=== PATIENT | male | born 1955 | race Caucasian/White ===

== ENCOUNTER 2023-10-21 10:28 | Emergency (ER) | payer MEDICARE, SELFPAY ==
--- NOTE | ~2023-10-21 | CT_ITS ---
EXAMINATION: CT ABDOMEN AND PELVIS WITHOUT CONTRAST CLINICAL INFORMATION: Right lower abdominal mass COMPARISON: None available. TECHNIQUE: Multidetector volumetric imaging was performed from the superior aspect of the liver through the pubic symphysis. Sagittal and coronal reformatted images were obtained on the technologist's workstation. This CT examination was performed using dose optimization techniques as appropriate, variously including the following: *Automated exposure control *Adjustment of mA and/or kV according to patient size (this includes techniques or standardized protocols for targeted exams where dose is matched to indication/reason for exam; i.e. extremities or head) *Use of iterative reconstruction technique DLP: 469 mGy-cm FINDINGS: LUNG BASES: The visualized lung bases are unremarkable. LIVER, GALLBLADDER, AND BILIARY TREE: The liver is normal in size, shape, and attenuation. No focal hepatic lesion or biliary ductal dilatation is present. The gallbladder is unremarkable with no evidence of radiopaque gallstones, gallbladder wall thickening, or obvious pericholecystic inflammatory changes. PANCREAS: Unremarkable. SPLEEN: Unremarkable. ADRENAL GLANDS: Unremarkable. KIDNEYS AND URETERS: The right kidney is larger than the left. The right kidney measures 13 and the left 9.3 cm in length. There is mild bilateral hydronephrosis and ureteral dilatation. No stone is seen. There are low attenuation right renal lesions probably representing cysts, largest measuring 3 cm in the upper pole. There is a 1 cm high attenuation round lesion in the upper pole right kidney probably representing a hyperdense cyst. No imaging follow-up recommended. BLADDER: Bladder is well-distended. There may be a TURP defect. GASTROINTESTINAL TRACT: Diverticulosis of the colon. No evidence of diverticulitis. Small and large bowel is otherwise normal. The appendix is not seen. The stomach is normal. ABDOMINAL WALL: No hernia. There is a reservoir seen in the right rectus muscle for penile prosthesis. LYMPH NODES: Normal. VASCULAR: There is severe atherosclerotic disease. There is an aorto bicommon iliac stent graft. There is a stent in the proximal left renal artery. No aneurysm seen. PELVIC VISCERA: Injection for defect. The prostate gland does not appear enlarged. OSSEOUS STRUCTURES: Severe degenerative changes of the spine. Degenerative changes at the hip joints. CT/CT abdomen pelvis wo IV con IMPRESSION: Severe atherosclerotic disease with aortobiiliac and left renal artery stents Right kidney larger than left. Bilateral hydronephrosis and ureteral dilatation. This may be due to distended bladder. Question TURP defect. Diverticulosis. No mass seen. 3 cm reservoir in the right rectus muscle for penile prosthesis. Fleischner guidelines were followed.
[2023-10-21 10:31] VITALS: BP 220/81; PULSE 64; RESP 20; TEMP 36.4; O2SAT 96; BMI 28.5
[2023-10-21 11:21] LABS: MANUAL DIFF FLAG NO
[2023-10-21 11:27] LABS: Basophils Absolute Auto 0.1 X10*3/uL (0.0-0.2); Basophils Percent Auto 0.4 % (0-2); Eosinophils Absolute Auto 0.2 X10*3/uL (0.0-0.4); Eosinophils Percent Auto 0.9 % (0-4); Hematocrit 47.8 % (42.0-52.0); Hemoglobin 15.5 g/dl (14.0-18.0); Imm Gran Abs Auto 0.17 X10*3/uL (0.00-0.03); Imm Gran Pct Auto 0.8 % (0.0-0.4); Lymphocytes Absolute Auto 1.3 X10*3/uL (1.2-4.9); Lymphocytes Percent Auto 6.4 % (20-40); Mean Corpuscular HGB Conc 32.4 g/dl (31.0-36.0); Mean Corpuscular Hemoglobin 29.5 pg (27.0-33.0); Mean Platelet Volume 9.5 fL (9.4-12.4); Monocytes Percent Auto 4.8 % (2-11); Neutrophils Absolute Auto 17.7 x10*3/uL (2.0-8.3); Neutrophils Percent Auto 86.7 % (45-73); Platelet Count 368 X10*3/uL (160-400); Red Blood Count 5.25 X10*6/uL (4.60-5.80); Red Cell Distribution Width 14.6 % (11.0-16.0); White Blood Count 20.4 X10*3/uL (4.8-10.8)
[2023-10-21 11:45] LABS: Alanine Aminotransferase 16 U/L (0-40); Albumin Level 3.9 g/dL (3.5-5.0); Alkaline Phosphatase 97 U/L (39-117); Anion Gap 18 (12-20); Aspartate Amino Transferase 10 U/L (5-37); Bilirubin Direct 0.2 mg/dL (0.0-0.5); Bilirubin Total 0.3 mg/dL (0.0-1.0); Blood Urea Nitrogen 39 mg/dL (9-16); Calcium 10.5 mg/dL (8.4-10.2); Carbon Dioxide 20 mmol/L (22-29); Chloride 108 mmol/L (96-108); Creatinine Clr Calc Pharmacy 29.6; Estimated Glomerular Filt Rate 27; Glucose Random 506 mg/dL (60-115); Lipase 44 U/L (8-78); Potassium 6.1 mmol/L (3.3-5.1); Sodium 140 mmol/L (135-145); Total Protein 7.9 g/dL (6.5-8.0)
--- NOTE | 2023-10-21 11:45 | ECG_ITS ---
Test Reason : HYPERKALEMIA Blood Pressure : / mmHG Vent. Rate : 069 BPM Atrial Rate : 069 BPM P-R Int : 150 ms QRS Dur : 120 ms QT Int : 406 ms P-R-T Axes : 069 -08 -07 degrees QTc Int : 435 ms Normal sinus rhythm Right bundle branch block Possible Lateral infarct , age undetermined Inferior infarct , age undetermined Abnormal ECG No previous ECGs available Referred By: Nikita Garcia Electronically Signed By:Randall Lea
[2023-10-21] MEDS: Insulin Lispro 100 UNIT/ML 3 ML VIAL 10 UNIT SUBCUT (12:21)
--- NOTE | 2023-10-21 12:53 | PC.NURSE ---
pt is a tough stick. 2 nurses have attempted to get a line. MD notified. awaiting us guided line
[2023-10-21] MEDS: 0.9 % Sodium Chloride 1,000 ML 999 ML IVCONT ×2 (13:40→14:09)
[2023-10-21 13:43] VITALS: BP 193/83; PULSE 78; RESP 18; TEMP 36.7; O2SAT 98
--- NOTE | 2023-10-21 13:47 | ED_ITS ---
HPI - General Adult General Chief complaint: General Medical Stated complaint: Referred by PCP Time Seen by Provider: 10/21/23 11:37 Source: patient and family Mode of arrival: ambulatory Limitations: no limitations History of Present Illness HPI narrative: Patient with multiple complaints including ear discharge, urinary incontinence, abdominal pain, rectal pain, weakness Onset (ago): week(s) Related Data Previous Rx's Medication Instructions Recorded clotrimazole 1 % topical cream 1 appl topical BID 4 weeks #90 10/21/23 (Antifungal (clotrimazole)) grams Allergies Allergy/AdvReac Type Severity Reaction Status Date / Time No Known Allergies Allergy Verified 10/21/23 10:36 Review of Systems 2 Review of Systems: Yes all other systems are reviewed and are negative Neurologic: Denies Sensory deficit (Neuro) [facility] Social History Social History Smoked in Last 30 Days: Yes Use of substances other than those prescribed or required for medical reasons: No Advance Directives: No Physical Exam ED Vital Signs: Vital Signs - 24 hr 10/21/23 10:31 10/21/23 13:43 10/21/23 14:03 Temperature 97.5 F 98.1 F 97.6 F Pulse Rate 64 78 71 Respiratory Rate 20 18 12 Blood Pressure 220/81 H 193/83 H 207/90 H Pulse Oximetry 96 98 99 Oxygen Delivery Method Room Air Room Air Room Air 10/21/23 15:49 Temperature 98.6 F Pulse Rate 70 Respiratory Rate 20 Blood Pressure 145/77 H Pulse Oximetry 94 Oxygen Delivery Method Room Air BMI result Body Mass Index 28.5 Const Other: chronically ill appearing Nutritional Appearance: average body habitus Orientation/consciousness: oriented to person and patient oriented x3 Limitations: no limitations HENMT Other: right ear with perforation, no drainage Head: Yes normal to inspection Ears: external ears normal General nose exam: Normal external nose present Mouth: Normal oral and palatal mucosa present and oropharynx normal Throat: Yes posterior oropharynx normal Eyes General: appearance normal, both eyes and all related structures Neck Neck: Yes normal visual inspection Chest Chest palpation & inspection: normal inspection of the chest Resp Auscultation: clear to auscultation bilaterally Cardio Jugular venous distension: no JVD Rate: regular rate Rhythm: regular rhythm Heart sounds: S1 normal heart sound present and S2 normal heart sound present GI Other: mass in right lower abdomen Inspection: Yes normal to inspection Palpation (GI): Soft to palpation, nontender and No hepatosplenomegaly present Auscultation: normal bowel sounds General: Yes no CVA tenderness Back/Spine/Pelvis Back: no CVA tenderness Skin Other: severe tinea cruis Neuro General: oriented to person and patient oriented x3 Cranial nerves: Yes CN's II-XII intact bilaterally Motor exam (neuro): 5/5 motor strength present throughout Sensory Exam: No Sensory deficit (Neuro) Extrem General: Yes normal to inspection Psych Appearance: grossly normal Course Reevaluation(s) Reevaluation #1: Patient with severe dehydration, abnormal glucose and potassium, CT is normal, mass in right abdomen is resovier for his penile prosthesis will rehydrate and get sugar down and dc home Time: 16:10 Medications Administered Discontinued Medications Generic Name Dose Route Start Last Admin Trade Name Freq PRN Reason Stop Dose Admin Clonidine HCl 0.3 mg 10/21/23 13:49 10/21/23 14:06 Clonidine Hcl 0.1 Mg Tablet PO 10/21/23 13:50 0.3 mg ONCE ONE Administration Protocol Sodium Chloride 1,000 mls @ 999 mls/hr 10/21/23 12:00 10/21/23 15:30 Ns IVCONT 10/21/23 14:00 Infused .Q1H1M HOWARD Infusion Insulin Human Lispro 10 unit 10/21/23 11:55 10/21/23 12:21 Insulin Lispro 100 Unit/Ml 3 Ml Vial SUBCUT 10/21/23 11:56 10 unit ONCE ONE Administration Insulin Human Lispro 5 unit 10/21/23 15:30 10/21/23 15:53 Insulin Lispro 100 Unit/Ml 3 Ml Vial SUBCUT 10/21/23 15:31 5 unit ONCE ONE Administration Morphine Sulfate 4 mg 10/21/23 13:46 10/21/23 14:06 Morphine Sulfate 4 Mg/Ml Cartridge IVPUSH 10/21/23 13:47 4 mg ONCE ONE Administration Protocol Medical Decision Making Differential Diagnosis Differential Diagnoses: The differential diagnosis associated with the presentation includes (abdominal mass, dehydration, hyperglycemia, hyperkalemia were all considered) Admission/Observation Consideration of admission/observation: Escalation of care including admission/observation considered (upon arrival patient was considered for admission) Lab Data MDM Lab Attestation statement: I reviewed the patient's lab results. 10/21/23 11:16 10/21/23 15:50 Labs: Lab Results 10/21/23 10/21/23 10/21/23 Range/Units 11:16 13:33 13:58 WBC 20.4 H (4.8-10.8) X10*3/uL RBC 5.25 (4.60-5.80) X10*6/uL Hgb 15.5 (14.0-18.0) g/dl Hct 47.8 (42.0-52.0) % MCV 91.0 (80.0-98.0) fL MCH 29.5 (27.0-33.0) pg MCHC 32.4 (31.0-36.0) g/dl RDW 14.6 (11.0-16.0) % Plt Count 368 (160-400) X10*3/uL MPV 9.5 (9.4-12.4) fL Immature Gran % (Auto) 0.8 H (0.0-0.4) % Neut % (Auto) 86.7 H (45-73) % Lymph % (Auto) 6.4 L (20-40) % [place] % (Auto) 4.8 (2-11) % Eos % (Auto) 0.9 (0-4) % Baso % (Auto) 0.4 (0-2) % Lymph # (Auto) 1.3 (1.2-4.9) X10*3/uL [place] # (Auto) 1.0 (0.1-1.2) X10*3/uL Eos # (Auto) 0.2 (0.0-0.4) X10*3/uL Baso # (Auto) 0.1 (0.0-0.2) X10*3/uL Abs Immat Gran (auto) 0.17 H (0.00-0.03) X10*3/uL Absolute Neuts (auto) 17.7 H (2.0-8.3) x10*3/uL Absolute Nucleated RBC 0.000 (0.0-0.012) X10*3/uL Nucleated RBC % (auto) 0.0 (0.0-0.2) /100WBC Sodium 140 (135-145) mmol/L Potassium 6.1 H* (3.3-5.1) mmol/L Chloride 108 (96-108) mmol/L Carbon Dioxide 20 L (22-29) mmol/L Anion Gap 18 (12-20) BUN 39 H (9-16) mg/dL Creatinine 2.44 H (0.5-1.4) mg/dL Estim Creat Clear Calc 29.6 Estimated GFR 27 POC Glucose 340 H (60-115) mg/dL Random Glucose 506 H* (60-115) mg/dL Lactic Acid 1.3 (0.5-2.0) mmol/L Calcium 10.5 H (8.4-10.2) mg/dL Total Bilirubin 0.3 (0.0-1.0) mg/dL Direct Bilirubin 0.2 (0.0-0.5) mg/dL AST 10 (5-37) U/L ALT 16 (0-40) U/L Alkaline Phosphatase 97 (39-117) U/L Total Protein 7.9 (6.5-8.0) g/dL Albumin 3.9 (3.5-5.0) g/dL Lipase 44 (8-78) U/L 10/21/23 10/21/23 Range/Units 14:56 15:50 WBC (4.8-10.8) X10*3/uL RBC (4.60-5.80) X10*6/uL Hgb (14.0-18.0) g/dl Hct (42.0-52.0) % MCV (80.0-98.0) fL MCH (27.0-33.0) pg MCHC (31.0-36.0) g/dl RDW (11.0-16.0) % Plt Count (160-400) X10*3/uL MPV (9.4-12.4) fL Immature Gran % (Auto) (0.0-0.4) % Neut % (Auto) (45-73) % Lymph % (Auto) (20-40) % [place] % (Auto) (2-11) % Eos % (Auto) (0-4) % Baso % (Auto) (0-2) % Lymph # (Auto) (1.2-4.9) X10*3/uL [place] # (Auto) (0.1-1.2) X10*3/uL Eos # (Auto) (0.0-0.4) X10*3/uL Baso # (Auto) (0.0-0.2) X10*3/uL Abs Immat Gran (auto) (0.00-0.03) X10*3/uL Absolute Neuts (auto) (2.0-8.3) x10*3/uL Absolute Nucleated RBC (0.0-0.012) X10*3/uL Nucleated RBC % (auto) (0.0-0.2) /100WBC Sodium 143 (135-145) mmol/L Potassium 5.5 H (3.3-5.1) mmol/L Chloride 112 H (96-108) mmol/L Carbon Dioxide 23 (22-29) mmol/L Anion Gap 14 (12-20) BUN 37 H (9-16) mg/dL Creatinine 2.44 H (0.5-1.4) mg/dL Estim Creat Clear Calc 29.6 Estimated GFR 27 POC Glucose 332 H (60-115) mg/dL Random Glucose 315 H (60-115) mg/dL Lactic Acid (0.5-2.0) mmol/L Calcium 9.6 D (8.4-10.2) mg/dL Total Bilirubin (0.0-1.0) mg/dL Direct Bilirubin (0.0-0.5) mg/dL AST (5-37) U/L ALT (0-40) U/L Alkaline Phosphatase (39-117) U/L Total Protein (6.5-8.0) g/dL Albumin (3.5-5.0) g/dL Lipase (8-78) U/L Independent Interpretation I performed an independent interpretation of an: EKG (sinus 70, RBBB, no st or twave changes) Radiology Impression Discussion of test interpretation with radiology: I have reviewed the radiologist's reading. (CT abdomen reading and I agree) Independent Historian Clinical information obtained from an independent historian. History obtained from or confirmed by: [facility] Chronic Conditions Patient?s care impacted by: Diabetes and Hypertension Discharge Plan Discharge Clinical Impression: Acute dehydration, Acute hyperglycemia, Tinea cruris Instructions: Dehydration (ED), Jock Itch (ED), Diabetic Hyperglycemia (ED) Prescriptions: New clotrimazole [Antifungal (clotrimazole)] 1 % cream 1 appl topical BID 28 Days Qty: 90 0RF Referrals: Jennifer Roberto DNP [Primary Care Provider] - 5 days
[2023-10-21 13:48] LABS: Lactic Acid 1.3 mmol/L (0.5-2.0)
[2023-10-21 14:02] LABS: Glucose, Whole Blood 340 mg/dL (60-115)
[2023-10-21 14:03] VITALS: BP 207/90; PULSE 71; RESP 12; TEMP 36.4; O2SAT 99
[2023-10-21] MEDS: cloNIDine HCL 0.1 MG TABLET 0.3 MG PO (14:06)
[2023-10-21] MEDS: Morphine Sulfate 4 MG/ML CARTRIDGE IVPUSH (14:06)
[2023-10-21 14:59] LABS: Glucose, Whole Blood 332 mg/dL (60-115)
[2023-10-21 15:49] VITALS: BP 145/77; PULSE 70; RESP 20; TEMP 37; O2SAT 94
[2023-10-21] MEDS: Insulin Lispro 100 UNIT/ML 3 ML VIAL SUBCUT (15:53)
--- NOTE | 2023-10-21 16:11 | PC.NURSE ---
fluids complete, repeat chem panel sent to lab after fluid completion. plan of care ongoing
[2023-10-21 16:17] LABS: Anion Gap 14 (12-20); Blood Urea Nitrogen 37 mg/dL (9-16); Calcium 9.6 mg/dL (8.4-10.2); Carbon Dioxide 23 mmol/L (22-29); Chloride 112 mmol/L (96-108); Creatinine Clr Calc Pharmacy 29.6; Estimated Glomerular Filt Rate 27; Glucose Random 315 mg/dL (60-115); Potassium 5.5 mmol/L (3.3-5.1); Sodium 143 mmol/L (135-145)
== END 2023-10-21 17:23 | disposition home or self-care (01) ==
PROVIDERS: Emergency Provider Emergency Medicine; PCP Registered Nurse
DX: E86.0 Dehydration (principal); B35.6 Tinea cruris; R73.9 Hyperglycemia, unspecified; R32 Unspecified urinary incontinence; I45.10 Unspecified right bundle-branch block; K62.89 Other specified diseases of anus and rectum; R10.9 Unspecified abdominal pain; Z79.899 Other long term (current) drug therapy
CPT/HCPCS: 36415; 74176; 80048; 80076; 82947; 83605; 83690; 85025; 87040; 93005; 96361; 96374; 99284; 99285; J2270

== ENCOUNTER → 2023-10-21 11:45 | Outpatient (BNV) | payer MEDICARE, SELFPAY | PROVIDERS: Emergency Provider Emergency Medicine; PCP Registered Nurse; Visit Provider Internal Medicine Cardiovascular Disease | DX: E87.5 Hyperkalemia (principal) | CPT/HCPCS: 93010 ==

== ENCOUNTER 2024-05-12 11:47 | Emergency (ER) | payer MEDICARE, SELFPAY ==
--- NOTE | ~2024-05-12 | XR_ITS ---
EXAMINATION: XR SHOULDER, RIGHT CLINICAL INFORMATION: Pain following a fall. COMPARISON: None available. TECHNIQUE: AP external rotation, Grashey, scapular Y, and axillary views of the right shoulder. FINDINGS: No displaced fracture. No dislocation. Moderate acromioclavicular and glenohumeral joint space narrowing with marginal osteophytes. Diffuse glenohumeral chondrocalcinosis. Multiple ossified loose bodies throughout the joint space including within the proximal long head biceps tendon sheath. No concerning lytic or blastic osseous lesion. XR/XR shoulder RT min 2V IMPRESSION: 1. No acute fracture or dislocation. 2. Moderate acromioclavicular and glenohumeral osteoarthritis. Diffuse chondrocalcinosis. Multiple calcified loose bodies throughout the joint space including within the proximal long head biceps tendon sheath.
--- NOTE | ~2024-05-12 | CT_ITS ---
EXAMINATION: CT CERVICAL SPINE WITHOUT CONTRAST CLINICAL INFORMATION: Fall. COMPARISON: None available. TECHNIQUE: Noncontrast CT of the cervical spine was performed. This CT examination was performed using dose optimization techniques as appropriate, variously including the following: *Automated exposure control *Adjustment of mA and/or kV according to patient size (this includes techniques or standardized protocols for targeted exams where dose is matched to indication/reason for exam; i.e. extremities or head) *Use of iterative reconstruction technique DLP: 412 mGy-cm FINDINGS: There is normal anatomic alignment of the vertebral bodies and facet joints. The vertebral bodies demonstrate preserved stature. There is intervertebral disc space narrowing at C5-C6 and C6-C7 with associated endplate sclerosis and marginal osteophytosis. There are disc osteophyte complexes at multiple levels including C3-C4, C4-C5, C5-C6. There is at least moderate spinal canal stenosis at C4-C5. The prevertebral soft tissues are normal in appearance. There is no acute cervical spine fracture. The lung apices are clear. CT/CT cervical spine wo IV con IMPRESSION: No acute osseous cervical spine abnormality. Degenerative disc disease and multilevel disc osteophyte complexes are noted. There is at least moderate spinal canal stenosis at C4-C5. Fleischner guidelines were followed.
--- NOTE | ~2024-05-12 | CT_ITS ---
EXAMINATION: CT HEAD WITHOUT CONTRAST CLINICAL INFORMATION: Fall. COMPARISON: None available. TECHNIQUE: Contiguous axial imaging was performed from the skull base to vertex without intravenous administration of contrast. This CT examination was performed using dose optimization techniques as appropriate, variously including the following: *Automated exposure control *Adjustment of mA and/or kV according to patient size (this includes techniques or standardized protocols for targeted exams where dose is matched to indication/reason for exam; i.e. extremities or head) *Use of iterative reconstruction technique DLP: 718 mGy-cm FINDINGS: There is no acute intracranial hemorrhage. There is no evidence of acute/subacute cerebral or cerebellar infarction. There is no midline shift or mass effect. No extra-axial fluid collection. The ventricles are normal in size. The visualized orbits are normal in appearance. There are in numerable calcifications scattered throughout the scalp. The calvarium is intact. The visualized paranasal sinuses are clear. The mastoid air cells are sclerotic bilaterally. CT/CT head/brain wo IV con IMPRESSION: No acute intracranial abnormality. There are innumerable calcifications scattered throughout the scalp.
[2024-05-12 11:53] VITALS: BP 188/90; PULSE 84; RESP 16; TEMP 36.1; O2SAT 96; BMI 27.9
--- NOTE | 2024-05-12 11:53 | ED.UPPEXIN ---
HPI - Extremity Injury (Upper) General Chief Complaint: Extremity Injury, Upper Stated Complaint: Shoulder inj Time Seen by Provider: 05/12/24 13:19 Source: patient and family Mode of arrival: ambulatory Limitations: no limitations History of Present Illness HPI narrative: 69-year-old male with a past medical history of chronic kidney disease and coma presents emergency department, with his partner, for evaluation of white/green discharge from bilateral ears as well as right shoulder pain after fall. He reports he slipped in the tub last week causing pain to the lateral shoulder radiating into the neck and down the arm into the hand. He reports he has been taking Tylenol with minimal improvement. Regarding his discharge from the ears he states the discharge has been happening for ?a long time? and that at times he can feel the drainage coming out of the ears. He states he was started on a topical antifungal as well as antibiotics with no improvement. He denies any hearing changes, headache, masses tenderness, fever, or chills. He also received once he concern he constantly smells urine. 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 Dupont Pertinent positives and negatives discussed in HPI Related Data Previous Rx's ?Medication ?Instructions ?Recorded clotrimazole 1 % topical cream 1 appl topical BID 4 weeks #90 10/21/23 (Antifungal (clotrimazole)) grams amoxicillin 875 mg-potassium 1 tab PO BID #7 tabs 05/12/24 clavulanate 125 mg tablet Allergies Allergy/AdvReac Type Severity Reaction Status Date / Time No Known Allergies Allergy Verified 05/12/24 11:55 Review of Systems Review of Systems: Yes all other systems are reviewed and are negative PMFSH Social History Social History Advance Directives: Yes Advance Directives on File: Yes Advance Directives Date on File: 05/12/24 Physical Exam Vital Signs: Vital Signs: Last Vital Signs Temp 98.9 F 05/12/24 17:05 Pulse 82 05/12/24 17:05 Resp 18 05/12/24 17:05 BP 183/79 H 05/12/24 17:05 Pulse Ox 96 05/12/24 17:05 O2 Del Method Room Air 05/12/24 17:05 BMI result Body Mass Index 27.9 Nursing notes and vital signs reviewed. GENERAL APPEARANCE: A&0 x 4, generally well appearing, no acute distress HENMT: Normal to inspection, atraumatic, face symmetrical. Normal external ears, nose, and oropharynx clear. EYE: PERRLA, EOM intact, structures appear normal NECK: Supple without lymphadenopathy. No stiffness or restricted ROM. CHEST: Normal to inspection HEART: Normal rate and regular rhythm, normal S1/S2, no M/R/G LUNGS: LS CTA, moving air well. Able to speak in complete sentences. No crackles, wheezes, or rhonchi auscultated ABDOMEN: Soft, nontender, nondistended. Normal bowel sounds noted BACK: No CVAT, no obvious deformity EXTREMITIES: Moving all extremities without difficulty. No cyanosis, clubbing, or edema. Normal capillary refill. NEUROLOGICAL: Alert and oriented, moving all 4 extremities with equal strength. CN not formally tested but appearing grossly intact. Observed to ambulate with normal gait. Cognition normal SKIN: Warm and dry without any lesions, rash, or visible sores PSYCH: Cooperative, normal affect, normal thought process Extrem: Shoulder/upper arm images: 1. Tenderness to palp Course Course Course Narrative: This is a Rapid Medical Examination (RME) performed by Renuka Mustafa PA-C in triage. Full HPI, ROS, assessment and treatment plan per primary provider in the Main ED. 69 yo right hand dominant male presents to the ER for evaluation of right shoulder pain after he fell in the bathtub last week. Pain is worse with movement and radiated down to the fingers and into the neck. He also reports a rash on his hands he wants evaluated. Also requesting lab work for his CKD. Plan: XR right shoulder Medications Administered Discontinued Medications Generic Name Dose Route Start Last Admin Trade Name Freq PRN Reason Stop Dose Admin Acetaminophen 975 mg 05/12/24 16:27 05/12/24 16:33 Acetaminophen 325 Mg Tablet PO 05/12/24 16:28 975 mg ONCE ONE Administration Clonidine HCl 0.2 mg 05/12/24 16:33 05/12/24 16:37 Clonidine Hcl 0.2 Mg Tablet PO 05/12/24 16:34 0.2 mg ONCE ONE Administration Protocol Lisinopril 20 mg 05/12/24 16:33 05/12/24 16:37 Lisinopril 20 Mg Tablet PO 05/12/24 16:34 20 mg ONCE ONE Administration Protocol Medical Decision Making Medical Decision Making MDM Narrative: Old records reviewed for previous imaging, lab studies, ECGs, and notes. Additional HPI obtained from patient's partner. Patient was assessed the emergency department with no acute distress or toxicity noted. Plan for CT head and C-spine to assess for acute injuries after fall as well as evaluate for possible cause of bilateral ear discharge. CT scan with contrast was considered, however; patient has chronic kidney disease with a creatinine of 1.58 in contrast was contraindicated due to his kidney function as well as history of diabetes. Patient reports red/purple rash on bilateral arms and hands and plan for blood work and HIV screening to further assess. CT head and C-spine showing no acute abnormalities, per my interpretation. Radiologist remarks on innumerable calcifications scattered throughout the scalp as well as mastoid air cells sclerotic bilaterally. Patient has no evidence of posterior ear tenderness, erythema, or swelling consistent with mastoiditis. Augmentin prescribed the patient's preferred pharmacy for management of otitis media which would be consistent with patient's bilateral ear discharge. Patient educated to follow-up with ENT with contact information provided. X-ray right shoulder showing no evidence of acute fracture dislocation, also per my interpretation. Patient educated to follow-up with Orthopedics as he may require an MRI for further evaluation of injury. HIV studies pending and patient educated that we will contact him with results. Patient is safe for discharge at this time with plan for [id number] Tylenol and/or NSAID such as ibuprofen or naproxen for fever/discomfort with dosing as per packaging. HPI, PE, diagnostics, and plan discussed with patient and family with no unanswered questions at this time. Strict return precautions given to return to the emergency department with new, worsening, or concerning emergent symptoms. Recommended to follow-up with there primary care provider in 24-48 hours for further treatment and management. Differential Diagnosis Differential Diagnoses: The differential diagnosis associated with the presentation includes But not limited to fracture, dislocation, strain, sprain, contusion, tendon or ligament tear, otitis media, otitis externa, mastoiditis, cholesteatoma, sinusitis, sepsis, malignancy Admission/Observation Consideration of admission/observation: Escalation of care including admission/observation considered Lab Data [facility] Lab Attestation statement: I reviewed the patient's lab results. 05/12/24 12:05 05/12/24 12:05 Labs: Lab Results 05/12/24 Range/Units 12:05 WBC 11.0 H (4.8-10.8) X10*3/uL RBC 5.22 (4.60-5.80) X10*6/uL Hgb 15.5 (14.0-18.0) g/dl Hct 46.2 (42.0-52.0) % MCV 88.5 (80.0-98.0) fL MCH 29.7 (27.0-33.0) pg MCHC 33.5 (31.0-36.0) g/dl RDW 14.2 (11.0-16.0) % Plt Count 236 D (160-400) X10*3/uL MPV 10.3 (9.4-12.4) fL Immature Gran % (Auto) 0.3 (0.0-0.4) % Neut % (Auto) 64.5 (45-73) % Lymph % (Auto) 24.7 (20-40) % [place] % (Auto) 8.4 (2-11) % Eos % (Auto) 1.6 (0-4) % Baso % (Auto) 0.5 (0-2) % Lymph # (Auto) 2.7 (1.2-4.9) X10*3/uL [place] # (Auto) 0.9 (0.1-1.2) X10*3/uL Eos # (Auto) 0.2 (0.0-0.4) X10*3/uL Baso # (Auto) 0.1 (0.0-0.2) X10*3/uL Abs Immat Gran (auto) 0.03 (0.00-0.03) X10*3/uL Absolute Neuts (auto) 7.1 (2.0-8.3) x10*3/uL Absolute Nucleated RBC 0.000 (0.0-0.012) X10*3/uL Nucleated RBC % (auto) 0.0 (0.0-0.2) /100WBC Sodium 145 (135-145) mmol/L Potassium 4.8 (3.3-5.1) mmol/L Chloride 109 H (96-108) mmol/L Carbon Dioxide 27 (22-29) mmol/L Anion Gap 14 (12-20) BUN 27 H (9-16) mg/dL Creatinine 1.58 H (0.5-1.4) mg/dL Estim Creat Clear Calc 44.7 Estimated GFR 44 Random Glucose 111 (60-115) mg/dL Calcium 10.3 H D (8.4-10.2) mg/dL Independent Interpretation I performed an independent interpretation of an: Plain X-Ray and CT Scan Interpretation: As negative for acute findings Independent Historian Clinical information obtained from an independent historian. History obtained from or confirmed by: Spouse External Record Review External record reviewed: Prior outpatient labs Prescription Management Narcotic pain medication was considered, however; based on exam, side effects, and high-risk of addiction was deemed necessary at this time. Discharge Plan Discharge Clinical Impression: Right shoulder strain, Fall, Otitis media Patient Disposition: Home, Self-Care Instructions: Muscle Strain (ED), Ear Infection (ED), Fall Prevention (ED) Prescriptions: New amoxicillin-pot clavulanate 875-125 mg tablet 1 tab PO BID Qty: 7 0RF No Action clotrimazole [Antifungal (clotrimazole)] 1 % cream 1 appl topical BID 28 Days Qty: 90 0RF Referrals: [facility] [place] [facility] [Provider Group] (For follow up shoulder pain) Arcadio Jorgensen MD [Primary Care Provider] - Dariel Yeung [Physician] - () Interventions: ED Discharge Assessment Last Done: 05/12/24 17:05 Discharge Date/Time: 05/12/24 17:06 Print Language: Sudanese
[2024-05-12 12:00] VITALS: BP 161/76; PULSE 76; RESP 18; TEMP 37.1; O2SAT 98
[2024-05-12 12:10] LABS: MANUAL DIFF FLAG NO
[2024-05-12 12:14] LABS: Basophils Absolute Auto 0.1 X10*3/uL (0.0-0.2); Basophils Percent Auto 0.5 % (0-2); Eosinophils Absolute Auto 0.2 X10*3/uL (0.0-0.4); Eosinophils Percent Auto 1.6 % (0-4); Hematocrit 46.2 % (42.0-52.0); Hemoglobin 15.5 g/dl (14.0-18.0); Imm Gran Abs Auto 0.03 X10*3/uL (0.00-0.03); Imm Gran Pct Auto 0.3 % (0.0-0.4); Lymphocytes Absolute Auto 2.7 X10*3/uL (1.2-4.9); Lymphocytes Percent Auto 24.7 % (20-40); Mean Corpuscular HGB Conc 33.5 g/dl (31.0-36.0); Mean Corpuscular Hemoglobin 29.7 pg (27.0-33.0); Mean Corpuscular Volume 88.5 fL (80.0-98.0); Mean Platelet Volume 10.3 fL (9.4-12.4); Monocytes Absolute Auto 0.9 X10*3/uL (0.1-1.2); Monocytes Percent Auto 8.4 % (2-11); Neutrophils Absolute Auto 7.1 x10*3/uL (2.0-8.3); Neutrophils Percent Auto 64.5 % (45-73); Platelet Count 236 X10*3/uL (160-400); Red Blood Count 5.22 X10*6/uL (4.60-5.80); Red Cell Distribution Width 14.2 % (11.0-16.0)
[2024-05-12 12:25] LABS: Anion Gap 14 (12-20); Blood Urea Nitrogen 27 mg/dL (9-16); Calcium 10.3 mg/dL (8.4-10.2); Carbon Dioxide 27 mmol/L (22-29); Chloride 109 mmol/L (96-108); Creatinine Clr Calc Pharmacy 44.7; Estimated Glomerular Filt Rate 44; Glucose Random 111 mg/dL (60-115); Potassium 4.8 mmol/L (3.3-5.1); Sodium 145 mmol/L (135-145)
[2024-05-12 14:00] VITALS: BP 189/95; PULSE 88; RESP 14; TEMP 37; O2SAT 96
[2024-05-12] MEDS: Acetaminophen 325 MG TABLET 975 MG PO (16:33)
[2024-05-12] MEDS: lisinopriL 20 MG TABLET PO (16:37)
[2024-05-12] MEDS: cloNIDine HCL 0.2 MG TABLET PO (16:37)
[2024-05-12 17:05] VITALS: BP 183/79; PULSE 82; RESP 18; TEMP 37.2; O2SAT 96
[2024-05-13 05:13] LABS: HIV AB/AG Nonreactive (Nonreactive); HIV Num 2 0.41 S/CO; HIV Num 3 0.37 S/CO
--- OUTSIDE RECORDS SUMMARY | 2024-05-18 06:17 | XMS_ITS | Continuity of Care Document ---
Author Organization [facility] ter Address [address] [place] [id number]- Care Team Providers Care Customer Account Manager Name Role Phone Pardeep GUZMAN, Jennifer Lopez Primary Care Physician [place] [facility] [place] 10/29/23 - 10/29/[address] [id number] Attending Physician: Jose Ramon Dupont MD Allergies, Adverse Reactions, Alerts No Known Allergies Medications Acetaminophen = 650 mg, By Mouth, 2 times a day, PRN Other, 0 Refills, Maintenance, 07/15/22 19:21:00 EDT, Partial fill upon patient request if the prescription is for a schedule II opioid drug. Start Date: 07/15/22 Status: Ordered Albuterol (Eqv-ProAir HFA) 90 mcg/inh inhalation aerosol 2 puffs, Inhalation, Every 6 hours, PRN Wheezing/Shortness of Breath, 0 Refills, Maintenance, 06/24/23 8:52:00 EDT, Partial fill upon patient request if the prescription is for a schedule II opioid drug. Start Date: 06/24/23 Status: Ordered aspirin (OP) = 81 mg, By Mouth, Daily, 0 Refills, Maintenance, 2 Start Date: 07/15/22 Status: Ordered Breo Ellipta 200 mcg-25 mcg/inh inhalation powder 1 puffs, INHALE 1 PUFF BY MOUTH EVERY DAY Start Date: 06/24/23 Status: Ordered Clonazepam = 1 mg, By Mouth, 2 times a day, 0 Refills, Maintenance, 07/15/22 19:21:00 EDT, Partial fill upon patient request if the prescription is for a schedule II opioid drug. Start Date: 07/15/22 Status: Ordered Clonidine = 0.2 mg, By Mouth, 2 times a day, 0 Refills, Maintenance, 07/15/22 19:21:00 EDT, Partial fill uponpatient request if the prescription is for a schedule II opioid drug. Start Date: 07/15/22 Status: Ordered Clopidogrel = 75 mg, By Mouth, Daily, 0 Refills, Maintenance, 07/15/22 19:20:00 EDT, Partial fill upon patient request if the prescription is for a schedule II opioid drug. Start Date: 07/15/22 Status: Ordered Dulcolax 5 mg oral enteric coated tablet 1 tablet = 5 mg, By Mouth, Daily, 0 Refills, Maintenance, 07/15/22 19:21:00 EDT, Partial fill upon patient request if the prescription is for a schedule II opioid drug. Start Date: 07/15/22 Status: Ordered Flonase Allergy Relief 50 mcg/inh nasal spray Daily, PRN Other, 0 Refills, Maintenance, 07/23/23 9:01:00 EDT, Partial fill upon patient request if the prescription is for a schedule II opioid drug. Start Date: 07/23/23 Status: Ordered Kalexate oral and rectal powder DISSOLVE 30 GRAMS AND TAKE BY MOUTH ONCE A month Start Date: 06/24/23 Status: Ordered Lisinopril = 20 mg, By Mouth, Daily, 0 Refills, Maintenance, 07/15/22 19:20:00 EDT, Partial fill upon patient request if the prescription is for a schedule II opioid drug. Start Date: 07/15/22 Status: Ordered Novolin 70/30 human recombinant subcutaneous injection 40 units, Subcutaneous Injection, 2 times a day, # 10 mL, 0 Refills, Maintenance, 07/23/23 9:06:00 EDT, Suspension, Partial fill upon patient request if the prescription is for a schedule II opioid drug. Start Date: 07/23/23 Status: Ordered Pantoprazole = 40 mg, By Mouth, 2 times a day, 0 Refills, Maintenance, 07/15/22 19:20:00 EDT Start Date: 07/15/22 Status: Ordered Rosuvastatin = 40 mg, By Mouth, Daily at bedtime, 0 Refills, Maintenance, 07/15/22 19:20:00 EDT, Partial fill upon patient request if the prescription is for a schedule II opioid drug. Start Date: 07/15/22 Status: Ordered Problem List Condition Confirmation Course Effective Dates Status Health St atus Informant CKD (chronic kidney disease) stage 3, GFR 30-59 ml/min Confirmed Active COPD (chronic obstructive pulmonary disease) Confirmed Active CAD (coronary artery disease) Confirmed Active Diabetes Confirmed Active History of Prostate cancer Confirmed Active History of Myocardial infarction x5 Confirmed Active TOMÁS (obstructive sleep apnea) Confirmed Active Social History Social History Type Response Tobacco Other: Patient shahida santana reports smoking 1-1/2 pack/day and currently working on behavior modification to cut down and eventually quit smoking.. Sex Patient Care team information Care Team Personnel Name: Pardeep GUZMAN, Jennifer Lopez Position[facility] Outreach Member Role: PCP Address: Address: [address] [place] [address]- Care Team Related Persons Name: BIENVENIDO IVORY Address: home [address] [place] [id number]
--- OUTSIDE RECORDS SUMMARY | 2024-05-18 06:17 | XMS_ITS | Continuity of Care Document ---
Author Organization [facility] ter Address [address] [place] [address]- Care Team Providers Care Accordion Maker Name Role Phone Pardeep GUZMAN, Jennifer Lopez Primary Care Physician Encounter [facility] [place] Date(s): 02/06/23 - 02/06/[address] [address]- Discharge Disposition: A-D/C Home Attending Physician: Jose Ramon Dupont MD Admitting Physician: Jose Ramon Dupont MD Referring Physician: Jose Ramon Dupont MD Allergies, Adverse Reactions, Alerts No Known Allergies Medications Acetaminophen 0 Refills, Maintenance, 07/15/22 19:21:00 EDT, Partial fill upon patient request if the prescription is for a schedule II opioid drug. Start Date: 07/15/22 Status: Ordered albuterol 90 mcg/inh inhalation powder 2 puffs, Inhalation, Every 4 hours, PRN as needed, # 1 each, 0 Refills, Maintenance, 02/04/23 12:33:00 EDT, Powder, Partial fill upon patient request if the prescription is for a schedule II opioid drug. Start Date: 02/04/23 Status: Ordered aspirin (OP) = 81 mg, By Mouth, Daily, 0 Refills, Maintenance, 2 Start Date: 07/15/22 Status: Ordered Clonazepam = 1 mg, By Mouth, 2 times a day, 0 Refills, Maintenance, 07/15/22 19:21:00 EDT, Partial fill upon patient request if the prescription is for a schedule II opioid drug. Start Date: 07/15/22 Status: Ordered Clonidine = 0.2 mg, By Mouth, 3 times a day, 0 Refills, Maintenance, 07/15/22 [...] opioid drug. Start Date: 07/15/22 Status: Ordered Lisinopril = 20 mg, By Mouth, Daily, 0 Refills, Maintenance, 07/15/22 19:20:00 EDT, Partial fill upon patient request if the prescription is for a schedule II opioid drug. Start Date: 07/15/22 Status: Ordered NovoLIN 70/30 FlexPen Subcutaneous Infusion, 0 Refills, Maintenance, 07/15/22 19:19:00 EDT, Partial fill upon patient request if the prescription is for a schedule II opioid drug. Start Date: 07/15/22 Status: Ordered Pantoprazole = 40 mg, By Mouth, 2 times a day, 0 Refills, Maintenance, 07/15/22 19:20:00 EDT Start Date: 07/15/22 Status: Ordered Rosuvastatin = 40 mg, By Mouth, Daily at bedtime, 0 Refills, Maintenance, 07/15/22 19:20:00 EDT, Partial fill upon patient request if the prescription is for a schedule II opioid drug. Start Date: 07/15/22 Status: Ordered Vital Signs Most recent to oldest [Reference Range]: 1 2 3 Height 168 cm (02/06/23 9:33 AM) 168 cm (02/04/23 1:50 PM) Weight 84.2 kg (02/06/23 9:33 AM) 85 kg (02/04/23 1:50 PM) Oxygen Saturation [94-100 %] 95 % (02/06/23 11:30 AM) 100 % (02/06/23 11:15 AM) 100 % (02/06/23 11:00 AM) Pulse Rate [55-90 bpm] 65 bpm (02/06/23 9:33 AM) Body Mass Index [18.5-24.99 kg/m2] 29.83 kg/m2 *H* (02/06/23 9:33 AM) 30.12 kg/m2 *>HHI* (02/04/23 1:50 PM) Blood Pressure [90-138/55-84 mm Hg] 163/65mm Hg *H* (02/06/23 11:30 AM) 139/62mm Hg *H* (02/06/23 11:15 AM) 162/53mm Hg *H* (02/06/23 11:00 AM) Respiratory Rate [16-30 br/min] 18 br/min (02/06/23 11:30 AM) 23 br/min (02/06/23 11:15 AM) 19 br/min (02/06/23 11:00 AM) Temperature [96.8-100.4 DegF] 97.6 DegF (02/06/23 11:00 AM) 97.5 DegF (02/06/23 9:33 AM) Liters per Minute 8 L/min (02/06/23 11:00 AM) Mode of Delivery (Oxygen) Room air (02/06/23 12:15 PM) Room air (02/06/23 11:30 AM) Room air (02/06/23 11:15 AM) Blood pressure sites Arm, right (02/06/23 9:33 AM) Temperature Route Temporal (02/06/23 11:00 AM) Temporal (02/06/23 9:33 AM) Dry Weight 84.2 kg (02/06/23 9:33 AM) 85 kg (02/04/23 1:50 PM) Weight Obtained Via Standing scale (02/06/23 9:33 AM) Patient/family stated (02/04/23 1:50 PM) Dry Weight Obtained Via Standing scale (02/06/23 9:33 AM) Patient/family stated (02/04/23 1:50 PM) Social History Social History Type Response Smoking Status 10 or more cigarette s (1/2 pack or more)/day in last 30 days entered on: 07/01/22 Sex Note * Jessie Escalera RN: PERFORM Event Display: Discharge/Transfer Note Hospital Authored Date: [id number] Nursing Discharge Note Entered On: 02/06/2023 12:35 EDT Performed On: 02/06/2023 12:34 EDT by Jessie Escalera RN Nursing Discharge Note 2 Discharge Time : 02/06/2023 12:25 EDT Discharge Level of Care at Discharge : Home/Usp/Foster Care Patient Left Unit Via : Wheelchair Patient Accompanied Off Unit with : Responsible adult DC Instructions Provided & Signed by Pt : Yes Patient Understands D/C Instructions : Yes Patient Instructions Discharge Signed : Yes Did Pt have Specialty Bed or Wound Vac : No Jessie Escalera RN - 02/06/2023 12:34 EDT * Jessie Escalera RN: PERFORM Event Display: Patient Education/Instruction Authored Date: [id number] Inpatient Adult Discharge Instructions [address] [address] Name: ERIK MATHIS : 1955 Visit: 02/06/2023 09:13:00 Current Date: 02/06/2023 11:56 Account: [id number] Inpatient Adult Discharge Instructions We would like to thank you for allowing us to assist you with your healthcare needs. The following includes patient education materials and information regarding your injury/illness. Our entire staffstrives to provide an excellent experience for our patients and their families. PLEASE ENSURE YOU FOLLOW-UP PER THE INSTRUCTIONS BELOW! ?? YOUR OPINION IS IMPORTANT TO US! Please complete the survey you may receive by mail or email. Your feedback will be used to make improvements to the healthcare experiences of our patients and their families. Surveys are administered by [employer] ?? If further treatment with your primary care physician or another doctor is recommended, it is important for you to keep the appointment. Call your primary care physician or return to the Emergency Department immediately if your condition worsens, fails to improve, or new symptoms develop. If you need to find a doctor, you can call [facility] [employer] for a referral at [phone] or toll free at [phone] ([phone]) or log in to [email or web address].. ?? You can view and manage your care through the patient portal or by using a health care cassie of your choosing. [employer] is a website that allows you to securely view your medical information including your hospital discharge summary, office visit summaries, medications and follow-up visits. You can also request appointments, renew medications, and request access to your medical information using a health care cassie of your choosing, or just ask a question. You can enroll at [email or web address] or register during your next office visit. You have been discharged from [facility], Patient Care Unit: [facility]. If you have any questions regarding these instructions after you leave, please call us and we will be happy to assist you. [facility] Your Care Team Attending Physician Cresencio GURROLA, Jose Ramon Hanley Discharging Providers Cresencio GURROLA, Jose Ramon Hanley Reason for Your Visit POST PROCEDURAL URETHRALSTRICTURE DS CS Tests Performed Below is a partial list of the tests performed during your hospitalization. You may have had other tests and procedures not included in this list. Please discuss all test results with your provider. GLUCOSE POC Primary Care Provider Pardeep GUZMAN, Jennifer Lopez Advance Directive . Discharge Vitals Temperature: 97.6 DegF Height: 168 cm Pulse Rate: 65 bpm Weight: 84.2 kg Respiratory Rate: 18 br/min Body Mass Index:??29.83 kg/m2??High Systolic Blood Pressure:??163 mm Hg??High Body surface area: 1.98 Diastolic Blood Pressure: 65 mm Hg ?? Oxygen Saturation: 95 % ?? Studies Pending All tests and labs ordered during this hospital stay have been completed unless listed below. Please discuss all pending results with your provider listed above in these instructions. ?? No incomplete studies found What to do next Instructions From Your Doctor Discharge Orders Instructions from your Care Team Please see discharge instruction sheet provided. ?? Call MD if: Excessive bleeding, swelling, severe pain, fever or vomiting occur. You Need to Schedule the Following Appointments Follow Up with??Jose Ramon Dupont When?? Where: [address] [facility] [place] [address]- Business (1) Follow Up with??Jennifer Roberto When??In 0 days Where: [address] [place] [address]- Business (1) Discharge Medications CORTESERIK SABA :1955 Visit Date:02/06/2023 Medications: Please continue your medications until treatment is completed or stopped by your provider. Medications not listed below should be discontinued. Discuss any questions related to medications with your provider. What How Much When Instructions Next Dose Unchanged Acetaminophen 5:30pm Unchanged Albuterol (albuterol 90 mcg/ inh inhalation powder) 2 puff(s) Inhalation Every 4 hours as needed for as needed Unchanged Aspirin (aspirin (OP)) 81 Milligram Oral Daily Unchanged Bisacodyl (Dulcolax 5 mg oral enteric coated tablet) 1 tab(s) Oral Daily Unchanged Clonazepam 1 Milligram Oral Twice a day Unchanged Clonidine 0.2 Milligram Oral 3 times a day Unchanged Clopidogrel 75 Milligram Oral Daily Unchanged Insulin Isophane-Insulin Regular (NovoLIN 70/ 30 FlexPen) Subcutaneous Infusion Unchanged Lisinopril 20 Milligram Oral Daily Unchanged Pantoprazole 40 Milligram Oral Twice a day Unchanged Rosuvastatin 40 Milligram Oral Daily at Bedtime Test Results Below is a partial list of the most recent Laboratory test results done prior to this discharge. You may have had other tests and procedures not included in this list. Please discuss all test resultswith your provider. GLUCOSE POC (02/06/2023) ???Glucose, POC - 144 mg/dL Allergies (NKA means No Known Allergies) NKA No Known Medication Allergies Problems No qualifying data available Education Materials Below is the list of Educational Leaflet Providered with your Discharge Instructions. Surgery Medical Daystay Surgical Overnight Discharge Instructions?? Valuables and Belongings I fully understand and agree that [facility] accepts no responsibility for all my personal property including clothing, toilet articles, radios, jewelry, dentures, hearing aids, rings, money, or any other property that is in my possession or is brought to me after admission. I understand certain valuables may be placed in a hospital safe for a short period of time. I understand that the hospital is not liable for loss or damage due to accident, fire, or other natural occurrence while said property is in the safe. I accept full responsibility for any personal property that I keep with me, and will not hold the hospital responsible in case of loss or disappearance. I acknowledge that i have been encouraged to send valuables and belongings home. ?? Review of Valuable and Belonging List: With patient, With family Date for Pt to Sign Valuables/Belongings: 02/06/23 09:33:00 ?? Valuables & Belongings ?? Clothes Electronic devices Jewelry Monetary Items Personal devices Miscellaneous Medications (Valuables) Valuables at Bedside Pants, Shirt, Shoes, Undergarments Cell phone ?? Wallet ? Valuables Sent Home ? Valuables Sent to Security ? Other Discharge Information ? Pulmonary Rehab Status?? Pulmonary Rehab Discharge Status?? Respiratory Rate: 18 br/min ? Common Emergency Awareness Tips IS IT A STROKE? Act FAST and Check for these signs: FACE Does the face look uneven? ARM Does one arm drift down? SPEECH Does their speech sound strange? TIME Call at any sign of stroke ?? Heart Attack Signs Chest discomfort: Most heart attacks involve discomfort in the center of the chest and lasts more than a few minutes, or goes away and comes back. It can feel like uncomfortable pressure, squeezing, fullness or pain. Discomfort in upper body: Symptoms can include pain or discomfort in one or both arms, back, neck, jaw or stomach. Shortness of breath: With or without discomfort. Other signs: Breaking out in a cold sweat, nausea, or lightheaded. Remember, MINUTES DO MATTER. If you experience any of these heart attack warning signs, call to get immediate medical attention! ?? Smoking can increase your chances of developing chronic health problems and can cause harmful effects to other family members in your house. If you smoke, you are strongly encouraged to quit. Please call [facility] [employer] Link at [phone] or [phone] ([phone]) or log in to [email or web address] for referrals to smoking cessation programs. ?? 474 Suicide & Crisis Lifeline is available 20/04 if you or someone you know needs to find a reason to keep living. By calling 381 you'll be connected to a skilled, trained counselor at a crisis center in your area. INPATIENT DISCHARGE INSTRUCTIONS SIGNATURE PAGE EIRK MATHIS Location:[facility] Registration Date and Time:02/06/2023 09:13 EDT Primary Care Physician: Jennifer Roberto NP, I ERIK MATHIS, have received the above patient education materials/instructions and have verbalized understanding. If ambulance or transport services are being used I further acknowledge being given a choice of service. ?? If you need to contact me, please call me at this number: . Patient/Lay Out Former Name: Erik Mathis Patient/Lay Out Former Signature: Relationship to Patient: self Witness Name/Signature: Date: 02/06/23 * Jessie Escalera RN: PERFORM, SIGN, VERIFY Event Display: Patient Education Handout Authored Date: [id number] * Jessie Escalera RN: PERFORM Event Display: Patient Education Leaflets Authored Date: [id number] Surgery Medical Daystay Surgical Overnight Discharge Instructions ?? 295 Medical Daystay/Surgical Overnight Discharge Instructions ? Since your coordination and judgment may be altered by medication and/or anesthesia, a responsible adult must drive you home from the hospital. ? If you have received medication for pain or sedation while under our care, you should not drive, operate machinery, drink alcohol, or sign any legal documents for 24 hours.?? You should have someone with you at home tonight. ? Remain at home the day of discharge.?? You may be up and about unless otherwise instructed by your physician. ? You may resume your daily prescription medication schedule.?? Any depressant medication should be avoided for 24 hours unless otherwise instructed by your surgeon or anesthesiologist. ? Call your physician for a follow-up appointment.? If you experience unusual or severe pain not relied by your pain medication, excessive bleedingor drainage, persistent nausea and vomiting, excessive swelling or redness, foul odor from incisionsite or fever over 100.6F, you need to call your physician. ? A follow-up phone call by a nurse will be made the day after your procedure.?? If you have stayed with us over night, you will not be receiving a follow-up phone call. ? Nausea and vomiting are a common side effect of prescription pain medication.?? We recommend that pills are not taken on an empty stomach.?? While taking any prescription pain medication you should not drive or drink alcohol. ? Patient Care team information Care Team Personnel Name: Pardeep GUZMAN, Jennifer Lopez Position: [facility] Outreach Member Role: PCP Address: Address: [address] [place] [id number]- Care Team Related Persons Name: BIENVENIDO IVORY Address: home [address] [place] [address]
--- OUTSIDE RECORDS SUMMARY | 2024-05-18 06:17 | XMS_ITS | Continuity of Care Document ---
Author Organization [facility] ter Address [address] [place] [id number]- Care Team Providers Care Front End Specialist Name Role Phone Pardeep GUZMAN, Jennifer Lopez Primary Care Physician [place] [facility] [place]19/23 - 04/19/[address] [address]- Encounter Diagnosis Cough(Final) - 04/19/23 Discharge Disposition: A-D/C Home Attending Physician: Tapan Abrams DO Admitting Physician: Tapan Abrams DO Referring Physician: Not on Staff, Referring MD Allergies, Adverse Reactions, Alerts No Known [...] opioid drug. Start Date: 07/15/22 Status: Ordered Results Radiology Reports * Exam Date Time Procedure Performing Provider Status 04/19/23 4:[address] Chest W/ Contrast Jackie Pool ; Auth (Verified) Notes: (CT Chest W/ Contrast) Reason For Exam: persistent cough and shortness of breath;Other: RESULT: CT Chest W/ Contrast CT Chest W/ Contrast INDICATION: Hx of Present Illness: productive cough with sputum x5 weeks, did 14 days of doxy with no improvement, CXR was negative, XR never showed PNA, cough is worsening with sob; Reason: Other:; persistent cough and shortness of breath; Clinical Question(s): Interstitial Alveolar Infiltration; malignancy; Order Comment: TECHNIQUE: Helical CT scan of the chest with IV contrast, formatted in 3 planes. 75 cc of [id number] was administered intravenously. Weight-based protocol was performed using automatic exposure control. CTDIvol Body: 12.30 mGy, DLP Body: 443 mGy*cm. COMPARISON: Chest x-ray 04/19/2023 and multiple priors. FINDINGS: Leather Tacker view findings, lines and tubes: None. Trachea and airways: Patent without evidence of tracheal or endobronchial lesion. Lungs and pleura: A 2 mm calcified granuloma in the right upper lobe. A 1 mm nodule at the left upper lobe (106, 30). A 3 mm nodule at the right lower lobe (601, 70) A few, additional less than 2 mm nodule in the right lower lobe. Right upper lobe nodule measuring 6 mm with No effusion or pneumothorax. Mediastinum and liam: No mass or hematoma. The prominent mediastinal lymph nodes measuring up to 6 mm in short axis. No pathologically enlarged lymph nodes. Small type I hiatal hernia. Normal thyroid. Heart: Heart is normal in size. No pericardial effusion. Coronary artery stenting. Aorta: No aortic aneurysm. Partially visualized aortic and right renal artery stenting. Pulmonary arteries: Normal caliber. No evidence of pulmonary embolism on this study performed without angiographic technique. Chest wall soft tissues: No acute abnormality. Diaphragm: A small left posterior diaphragmatic defect ( 604, 77) Upper abdomen: A 3.7 x 3 cm simple cyst in the right upper pole kidney, not requiring any further follow-up. Atrophic appearance of the partially visualized left kidney. Bones: Multilevel degenerative changes in the thoracic spine. IMPRESSION: No evidence of acute pathology in CT chest. If low risk for malignancy, follow-up CT at 6-12 months, then consider CT at 18- 24 months and if unchanged no further follow-up. If high risk for malignancy, follow-up CT at 6-12 months, then CT at 18-24 months and if unchanged no further followup per Guidelines for Management of Incidental Pulmonary Nodules Detected on CT Images: From the Fleischner Society 2017. I have personally reviewed the images and I agree with this report. WSN: [id number] Ordering Physician: Maggy Blunt Dictated By: Belkys Varela MD Dictated Date/Time: 04/19/23 5:58 pm Reviewed By: Albert Schmidt MD Signed By: Albert Schmidt MD Signed Date/Time: 04/19/23 6:03 pm Transcribed By: DANIELITO Transcribed Date/Time: 04/19/23 5:14 pm * Exam Date Time Procedure Performing Provider Status 04/19/23 2:01 PM Chest 2 Views Frontal and Lat Caleb Alba; Luz Maria (Verified) Notes: (Chest 2 Views Frontal and Lat) Reason For Exam: SOB;Cough RESULT: Chest 2 Views Frontal and Lat Chest 2 Views Frontal and Lat Hx of Present Illness: productive cough with sputum x5 weeks, did 14 days of doxy with no improvement, CXR was negative, XR never showed PNA, cough is worsening with sob; Reason: Cough; SOB; ClinicalQuestion(s): Pneumonia; Special Instructions: This is a protocol film and radiologist should call any findings to the Charge Nurse or appropriate provider COMPARISON: 03/25/2023 FINDINGS: LINES AND TUBES: None. LUNGS AND PLEURA: Clear lungs. Normal pulmonary vascularity. No pleural effusion. No pneumothorax. HEART, MEDIASTINUM AND LIAM: Heart is normal in size. Normal mediastinal and hilar contour. BONES AND SOFT TISSUES: No acute abnormality. Stable mild anterior wedging of T12 or L1. Multilevel anterior flowing osteophytes consistent with DISH. Partially imaged proximal aortic stent graft. IMPRESSION: No acute abnormality. WSN: [id number] Ordering Physician: Lauren Lancaster Dictated By: Jennifer Mendez MD Dictated Date/Time: 04/19/23 2:27 pm Reviewed By: Jennifer Mendez MD Signed By: Jennifer Mendez MD Signed Date/Time: 04/19/23 2:27 pm Transcribed By: DANIELITO Transcribed Date/Time: 04/19/23 2:25 pm Vital Signs Most recent to oldest [Reference Range]: 1 2 3 Height 168 cm (04/19/23 8:29 PM) 168 cm (04/19/23 4:11 PM) 168 cm (04/19/23 12:46 PM) Weight 84 kg (04/19/23 8:29 PM) 84 kg (04/19/23 4:11 PM) 84 kg (04/19/23 12:46 PM) Oxygen Saturation [94-100 %] 97 % (04/19/23 8:29 PM) 97 % (04/19/23 4:11 PM) 99 % (04/19/23 12:39 PM) Pulse Rate [55-90 bpm] 60 bpm (04/19/23 8:29 PM) 80 bpm (04/19/23 4:11 PM) 86 bpm (04/19/23 12:39 PM) Body Mass Index [18.5-24.99 kg/m2] 29.76 kg/m2 *H* (04/19/23 8:29 PM) 29.76 kg/m2 *H* (04/19/23 4:11 PM) 29.76 kg/m2 *H* (04/19/23 12:39 PM) Blood Pressure [90-138/55-84 mm Hg] 167/101mm Hg *H* (04/19/23 8:29 PM) 127/66mm Hg (04/19/23 4:11 PM) 163/84mm Hg *H* (04/19/23 12:39 PM) Respiratory Rate [16-30 br/min] 19 br/min (04/19/23 8:29 PM) 18 br/min (04/19/23 4:11 PM) 18 br/min (04/19/23 12:39 PM) Temperature [96.8-100.4 DegF] 99.0 DegF (04/19/23 8:29 PM) 98.2 DegF (04/19/23 4:11 PM) 98.4 DegF (04/19/23 12:39 PM) Mode of Delivery (Oxygen) Room air (04/19/23 8:29 PM) Room air (04/19/23 4:11 PM) Room air (04/19/23 12:39 PM) Blood pressure sites Arm, right (04/19/23 8:29 PM) Arm, left (04/19/23 4:11 PM) Arm, right (04/19/23 12:39 PM) Temperature Route Oral (04/19/23 8:29 PM) Oral (04/19/23 4:11 PM) Oral (04/19/23 12:39 PM) Dry Weight 84 kg (04/19/23 8:29 PM) 84 kg (04/19/23 4:11 PM) 84 kg (04/19/23 12:46 PM) Weight Obtained Via Patient/family state d (04/19/23 12:39 PM) Dry Weight Obtained Via Patient/family s tated (04/19/23 12:39 PM) Social History Social History Type Response Smoking Status 10 or more cigarette s (1/2 pack or more)/day in last 30 days entered on: 07/01/22 Sex Note * Yusuf CHAUHAN, Shana Sainz: PERFORM Event Display: Patient Education Leaflets Authored Date: [id number] Chronic Cough with??Uncertain Cause (Adult) ?? [id number] Chronic Cough with??Uncertain Cause (Adult) Everyone has had a cough as part of the common cold, flu, or bronchitis. This kind of cough occurs along with an achy feeling, low-grade fever, nasal and sinus congestion, and a scratchy or sore throat. This usually gets better in 2 to 3 weeks. A cough that lasts longer than 3 weeks may be due to other causes. Your healthcare provider may refer to this as a chronic cough. If your cough does not improve over the next 2 weeks, further testing may be needed. Follow up withyour healthcare provider as advised. Cough suppressants may be recommended. Based on your exam today, the exact cause of your cough is not certain. Below are some common causes for persistent cough. Smoker's cough Smoker???s cough doesn???t go away. If you continue to smoke, it only gets worse. The cough is fromirritation in the air passages. Talk to your healthcare provider about quitting. Medicines or nicotine-replacement products, like gum or the patch, may make quitting easier. ?? Postnasal drip A cough that is worse at night may be due to postnasal drip. Excess mucus in the nose drains from the back of your nose to your throat. This triggers the cough reflex. Postnasal drip may be due to a sinus infection or allergy. Common allergens include dust, tobacco smoke (both inhaled and secondhand smoke), environmental pollutants, pollen, mold, pets, cleaning agents, room deodorizers, and chemical fumes. Jhvb-rgo-fwcoacp antihistamines or decongestants may be helpful for allergies. A sinus infection may require antibiotic treatment. See your healthcare provider if symptoms continue. ?? Medicines Certain prescribed medicines can cause a chronic cough in some people: ??? EMELIA inhibitors for high blood pressure. These include enalapril, lisinopril, and others. ??? Beta-blockers for high blood pressure and other conditions. These include propranolol, metoprolol, andothers. Let your healthcare provider know if you are taking any of these. The chronic cough may mean your medicine needs to be changed. ?? Asthma Cough may be the only sign of mild asthma. You may have tests to find out if asthma is causing yourcough. You may also take asthma medicine on a trial basis. ?? Acid reflux (heartburn, GERD) The esophagus is the tube that carries food from the mouth to the stomach. A valve at its lower endprevents stomach acids from flowing upward. If this valve does not work properly, acid from the stomach enters the esophagus. This may cause a burning pain in the upper abdomen or lower chest, belching, or cough. Symptoms are often worse when lying flat. Avoid eating or drinking before bedtime. Tryusing extra pillows to raise your upper body, or place 4-inch blocks under the head of your bed. You may try an ejzc-mel-qtmtewm (OTC) antacid or an acid-blocking medicine such as cimetidine, or omeprazole. Stronger medicines for this condition can be prescribed by your healthcare provider. Ask your healthcare provider which OTC medicine to use. Depending on your current medicines, some OTC medicines may cause drug interactions and should be avoided. ?? Follow-up care Follow up with your healthcare provider, or as advised, if your cough doesn't improve. Further testing may be needed. Note: If an X-ray was taken, you'll be told of any new findings that may affect your care. ?? When to get medical advice Call your healthcare provider right away if any of these occur: ??? Mild wheezing or trouble breathing ??? Fever of 100.4??F (38??C) or higher, or as advised by your provider ??? Unexpected weight loss ??? Coughing up large amounts of colored sputum or blood-tinged sputum ??? Night sweats (sheets and pajamas get soaking wet) ?? Call 911 Call 911 if any of these occur: ??? Coughing up blood ??? Moderate to severe trouble breathing or wheezing ?? Last Reviewed Date: 2021 ?? [id number] The [employer]. All rights reserved. This information is not intended as a substitute for professional medical care. Always follow your healthcare professional's instructions. ?? Patient Care team information Care Team Personnel Name: Jennifer Roberto NP Position: [facility] Outreach Member Role: PCP Address: Address: [address] [place] [address]- Name: Tapan Abrams DO Position: [facility] Resident Member Role: Admitting Physician Address: Address: [address] [place] [address]- Name: Clara Harvey RN Position: [facility] ED RN W/OE and Tasks Member Role: Patient Care Provider Name: Shana Davis Position: [facility] Associate Professional Member Role: ED Physician Assistant Manager Trainee Address: Address: [address] [place] [address]- Name: Maggy Stevens Position: [facility] Associate Professional Member Role: ED Physician Assistant Manager Trainee Address: Address: [address] [place] [address]- Care Team Related Persons Name: BIENVENIDO IVORY Address: [address] [address]
--- OUTSIDE RECORDS SUMMARY | 2024-05-18 06:17 | XMS_ITS | Continuity of Care Document ---
Author Organization [facility] ter Address [address] [place] [address]- Care Team Providers Care Visual Training Aide Name Role Phone Pardeep GUZMAN, Jennifer Lopez Primary Care Physician Encounter [facility] [place] Date(s): 07/24/23 - 07/24/[address] [address]- Discharge Disposition: A-D/C Home Attending Physician: Jose [...] opioid drug. Start Date: 07/23/23 Status: Ordered Oxycodone 5mg Oral Tablet (PACU ONLY) 5 mg, Tablet, By Mouth, Once, in PACU ONLY, PRN for Pain , Moderate, Routine, 07/24/23 8:31:00 EDT Start Date: 07/24/23 Stop Date: 07/24/23 Status: Completed Pantoprazole = 40 mg, By Mouth, 2 [...] Active TOMÁS (obstructive sleep apnea) Confirmed Active Vital Signs Most recent to oldest [Reference Range]: 1 2 3 Height 168 cm (07/24/23 6:35 AM) 168 cm (07/23/23 9:15 AM) Weight 82.1 kg (07/24/23 6:35 AM) 82 kg (07/23/23 9:15 AM) Oxygen Saturation [94-100 %] 98 % (07/24/23 10:15 AM) 95 % (07/24/23 10:00 AM) 98 % (07/24/23 9:45 AM) Pulse Rate [55-90 bpm] 74 bpm (07/24/23 6:35 AM) Body Mass Index [18.5-24.99 kg/m2] 29.09 kg/m2 *H* (07/24/23 6:35 AM) 29.05 kg/m2 *H* (07/23/23 9:15 AM) Blood Pressure [90-138/55-84 mm Hg] 132/61mm Hg (07/24/23 10:00 AM) 132/56mm Hg (07/24/23 9:45 AM) 138/89mm Hg (07/24/23 9:30 AM) Respiratory Rate [16-30 br/min] 16 br/min (07/24/23 10:15 AM) 17 br/min (07/24/23 10:01 AM) 18 br/min (07/24/23 9:45 AM) Temperature [96.8-100.4 DegF] 98.0 DegF (07/24/23 10:30 AM) 98.0 DegF (07/24/23 9:15 AM) 98 DegF (07/24/23 6:35 AM) Liters per Minute 4 L/min (07/24/23 9:30 AM) 6 L/min (07/24/23 9:15 AM) Mode of Delivery (Oxygen) Room air (07/24/23 10:00 AM) Room air (07/24/23 9:45 AM) Simple face mask (07/24/23 9:30 AM) Temperature Route Temporal (07/24/23 10:30 AM) Temporal (07/24/23 9:15 AM) Temporal (07/24/23 6:35 AM) Dry Weight 82.1 kg (07/24/23 6:35 AM) 82 kg (07/23/23 9:15 AM) Weight Obtained Via Standing scale (07/24/23 6:35 AM) Patient/family stated (07/23/23 9:15 AM) Dry Weight Obtained Via Patient/family s tated (07/23/23 9:15 AM) Social History Social History Type Response Tobacco Other: Patient shahida santana reports smoking 1-1/2 pack/day and currently working on behavior modification to cut down and eventually quit smoking.. Sex History and physical note * Event Display: History and Physical Hospital Authored Date: Note * Elsie Hector RN: PERFORM Event Display: Discharge/Transfer Note Hospital Authored Date: [id number] Nursing Discharge Note Entered On: 07/24/2023 10:25 EDT Performed On: 07/24/2023 10:44 EDT by Elsie Hector RN Nursing Discharge Note 2 Discharge Time : 07/24/2023 10:34 EDT Patient Left Unit Via : Wheelchair Elsie Hector RN - 07/24/2023 10:44 EDT Discharge Level of Care at Discharge : Home/Longterm/Foster Care Patient Accompanied Off Unit with : Significant other DC Instructions Provided & Signed by Pt : Yes Patient Understands D/C Instructions : Yes Patient Instructions Discharge Signed : Yes Did Pt have Specialty Bed or Wound Vac : No Elsie Hector RN - 07/24/2023 10:25 EDT * Elsie Hector RN: PERFORM Event Display: Patient Education/Instruction Authored Date: [id number] Surgery Adult Discharge Instructions [address] [address] Name: CORY KOLB : 1955?? Visit: 07/24/2023 05:40?? Current Date: 07/24/2023 10:08 ?? Account: [id number]?? Surgery Discharge Instructions We would like to thank [...] and their families. Surveys are administered by [employer] ?? If further treatment with your primary care physician or another doctor is recommended, it is important for you to keep the appointment. Call your primary care physician or return to the Emergency Department immediately if your condition worsens, fails to improve, or new symptoms develop. If you need to find a doctor, you can call [facility] [employer] Link for a referral at [phone] or toll free at [phone]) or log in to [email or web address].. ?? [facility], in keeping with [facility] guidance, no longer requires face masks for staff, patientsor visitors in most situations. Similiar to time spent indoors at other locations, there is the chance that you were exposed to repiratory viruses during your time with us (such as flu or COVID-19). If you develop symptoms concerning for a viral respiratory infection, please seek testing (and treatment if indicated) from your medical provider or home test kit. ?? You can view and manage your care through the patient portal or by using a health care cassie of your choosing. [employer] is a website that allows you to securely view your medical information including your hospital discharge summary, office visit summaries, medications and follow-up visits. You can also request appointments, renew medications, and request access to your medical information using a health care cassie of your choosing, or just ask a question. You are entitled to know the individuals who participated in your treatment. This information is available within your medical record and will be provided upon your request. You can enroll at [email or web address] or register d uring your next office visit. You have been discharged from [facility], Patient Care Unit: [facility]??. If you have any questions regarding these instructions after you leave, please call us and we will be happy to assist you. [facility] Your Care Team Attending Physician Jose Ramon Dupont MD?? Consulting Providers Stanford GURROLA, Jovan?? Discharging Providers Jose Ramon Dupont MD Reason for Admission STRESS INCONTINENCE INS URINARY SPHINCTER DS CS Primary Care Provider Pardeep GUZMAN, Jennifer Lopez? Advance Directive Health Care Proxy on File No What to do next Instructions From Your Doctor ?? Orders? 07/24/23 9:50:00 EDT?? Prescriptions??, ??07/24/23 9:50:00 EDT , ??07/24/23 9:07:00 EDT?? Instructions from your Care Team ?? You may ??shower in 48 hours. ?? Ice pack to wound for 48 hours. ?? Please ??take dressing down in 48 hrs. ?? Please ??remove ferrera catheter on Thursday morning at 8am with 10-mL syringe You Need to Schedule the Following Appointments Follow Up with??Cresencio GURROLA, Jose Ramon Hanley When:??Within 1 to 2 weeks Where: [address] [facility] [place] [address]- Discharge Medications CORY KOLB :1955 Visit Date:07/24/2023 Medications: Please continue your medications until treatment is completed or stopped by your provider. You may resume your daily prescription medications. Discuss any questions related to medications with your provider. What How Much When Instructions Next Dose Unchanged Acetaminophen 650 Milligram Oral Twice a day as needed for Other Unchanged Albuterol (Albuterol (Eqv-ProAir HFA) 90 mcg/ inh inhalation aerosol) 2 puff(s) Inhalation Every 6 hours as needed for Wheezing/Shortness of Breath Unchanged Aspirin (aspirin (OP)) 81 Milligram Oral Daily Unchanged Bisacodyl (Dulcolax 5 mg oral enteric coated tablet) 1 tab(s) Oral Daily Unchanged Clonazepam 1 Milligram Oral Twice a day Unchanged Clonidine 0.2 Milligram Oral Twice a day Unchanged Clopidogrel 75 Milligram Oral Daily Unchanged Fluticasone Nasal (Flonase Allergy Relief 50 mcg/ inh nasal spray) Daily as needed for Other Unchanged fluticasone-vilanterol (Breo Ellipta 200 mcg-25 mcg/ inh inhalation powder) 1 puff(s) INHALE 1 PUFF BY MOUTH EVERY DAY ?? Unchanged Insulin Isophane-Insulin Regular (Novolin 70/ 30 human recombinant subcutaneous injection) 40 units Subcutaneous Injection Twice a day Unchanged Lisinopril 20 Milligram Oral Daily Unchanged Pantoprazole 40 Milligram Oral Twice a day Unchanged Rosuvastatin 40 Milligram Oral Daily at Bedtime Unchanged Sodium Polystyrene Sulfonate (Kalexate oral and rectal powder) DISSOLVE 30 GRAMS AND TAKE BY MOUTH ONCE A month ?? Allergies (NKA means No Known Allergies) NKA No Known Medication Allergies Education Materials Below is the list of Educational Leaflet Providered with your Discharge Instructions. Valuables and Belongings I fully understand and agree that [facility] accepts no responsibility for all my [...] Review of Valuable and Belonging List: With patient Date for Pt to Sign Valuables/Belongings: 07/24/23 06:35:00 ?? Valuables & Belongings ?? Clothes Electronic devices Jewelry Monetary Items Personal devices Miscellaneous Medications (Valuables) Valuables at Bedside Jacket, Pants, Shirt, Shoes, Undergarments ? Valuables Sent Home ? Valuables Sent to Security ? Other Discharge Information ? Pulmonary Rehab Status?? Pulmonary Rehab Discharge Status?? Respiratory Rate: 17 br/min ? Common Emergency Awareness Tips IS [...] are strongly encouraged to quit. Please call [facility] [employer] Link at [phone] or [phone]) or log in to [email or web address] for referrals to smoking cessation programs. ?? The National Suicide Prevention Hotline is available 20/04 if you or someone you know needs to find a reason to keep living. By calling 8-971-853-0-6.com (9697) you'll be connected to a skilled, trained counselor at a crisis center in your area. SURGERY DISCHARGE INSTRUCTIONS SIGNATURE PAGE CORY KOLB Location:[facility] Registration Date and Time:07/24/2023 05:40 EDT Primary Care Physician: Pardeep GUZMAN, Jennifer Lopez, Attending Physician: Cresencio GURROLA, Jose Ramon Hanley, I CORY KOLB, have received the above patient education materials/instructions and have verbalized understanding. If ambulance or transport services are being used I further acknowledge being given a choice of service. ?? If you need to contact me, please call me at this number: . Patient/Edi Specialist Name:_CORY KOLB Patient/Edi Specialist Signature: Relationship to Patient:__self Witness Name/Signature:__Esther ??Tawny Date:__07/24/2023 * Elsie Hector RN: PERFORM Event Display: Patient Education Leaflets Authored Date: [id number] Surgery Medical Daystay Surgical Overnight Discharge Instructions [...] should not drive or drink alcohol. ? * Elsie Hector RN: PERFORM Event Display: Patient Education Leaflets Authored Date: NSAID Analgesic Schedule ?? 604 NSAID???s Analgesic Schedule ?? Pain is the primary source of illness following your procedure and can include dehydration, difficulty and painful swallowing, and weight loss. These symptoms can lead to increased post-operative visits and hospital readmission. The best way to control pain is to take pain medications regularly. Your doctor has recommended both Ibuprofen and Acetaminophen (generic/store brands are okay, too). These can be picked up over the counter at your pharmacy of choice. Follow the instructions on the bottle to determine the proper dosage to give. The simplest way to take these medications it to rotate the two at 3-hour intervals. Here is a sample diagram. The time you take your medications may vary from this example. Do not give Ibuprofen more than every 6 hours or Acetaminophen every 4 hours. Do not give Acetaminophen if your doctor has given you a prescription that contains Acetaminophen. ? * Elsie Hector RN: PERFORM Event Display: Patient Education Leaflets Authored Date: Surgery Medical Daystay Surgical Overnight Discharge Instructions [...] Team Personnel Name: Jennifer Roberto NP Position: S Outreach Member Role: PCP Address: Address: [address] [place] [address]- Care Team Related Persons Name: BIENVENIDO IVORY Address: home [address] [place] [address]
--- OUTSIDE RECORDS SUMMARY | 2024-05-18 06:17 | XMS_ITS | Continuity of Care Document ---
Author Organization [facility] ter Address [address] [place] [address]- Care Team Providers Care Community Development Manager Name Role Phone Pardeep GUZMAN, Jennifer Lopez Primary Care Physician Encounter [facility] Date(s): 07/05/23 - 07/06/[address] [address]- Encounter Diagnosis Otitis externa(Final) - 07/06/23 Discharge Disposition: A-D/C Home Attending Physician: Shima March DO Admitting Physician: Shima March DO Referring Physician: Not on Staff, Referring MD Allergies, Adverse Reactions, Alerts No Known Allergies Medications Acetaminophen 0 Refills, Maintenance, 07/15/22 19:21:00 EDT, Partial fill upon patient request if the prescription is for a schedule II opioid drug. Start Date: 07/15/22 Status: Ordered Albuterol (Eqv-ProAir HFA) 90 mcg/inh inhalation aerosol 0 Refills, Maintenance, 06/24/23 8:52:00 EDT, Partial fill upon patient request if the prescriptionis for a schedule II opioid drug. Start Date: 06/24/23 Status: Ordered albuterol 90 mcg/inh inhalation powder [...] opioid drug. Start Date: 07/15/22 Status: Ordered Kalexate oral and rectal powder DISSOLVE 30 GRAMS AND TAKE BY MOUTH ONCE A WEEK Start Date: 06/24/23 Status: Ordered Lisinopril = [...] opioid drug. Start Date: 07/15/22 Status: Ordered ofloxacin 0.3% otic solution 5, drops, Ears, Both, 2 times a day, Please do these for 7 days and if not improved and symptoms all resolved after 7 days continue for 14 days., # 5 mL, Refills 0, Tot. Refills 0, Acute, 07/07/24 0:32:00 EDT, 07/06/23 0:31:00 EDT, Route to Pharmacy E... Start Date: 07/06/23 Stop Date: 07/07/24 Status: Ordered Pantoprazole = 40 mg, By [...] Active TOMÁS (obstructive sleep apnea) Confirmed Active Results Radiology Reports * Exam Date Time Procedure Performing Provider Status 07/05/23 3:14 PM Chest 2 Views Fronta l and Lat Joellen Murray; Auth (Verified) Notes: (Chest 2 Views Frontal and Lat) Reason For Exam: Chest Pain;Other: RESULT: Chest 2 Views Frontal and Lat Chest 2 Views Frontal and Lat Hx of Present Illness: Patient with extensive cardiac history presents with bilat ear pain, jaw pain, nausea and headache. Symptoms started this morning. Also, no BM x 5 days.; Reason: Other:; Chest Pain; Clinical Question(s): Other: COMPARISON: 06/24/2023 FINDINGS: LINES AND TUBES: None. LUNGS AND PLEURA: Slightly patchy density appears similar to previous examination. This is likely within normal range No pleural effusion. No pneumothorax. HEART, MEDIASTINUM AND SHANTI: Heart is normal in size. Normal mediastinal and hilar contour. BONES AND SOFT TISSUES: No acute abnormality. IMPRESSION: No acute abnormality. WSN: [id number] Ordering Physician: Jennifer Guadarrama Dictated By: Albert Schmidt MD Dictated Date/Time: 07/05/23 3:17 pm Reviewed By: Albert Schmidt MD Signed By: Albert Schmidt MD Signed Date/Time: 07/05/23 3:17 pm Transcribed By: DANIELITO Transcribed Date/Time: 07/05/23 3:16 pm Vital Signs Most recent to oldest [Reference Range]: 1 2 3 Height 168 cm (07/06/23 12:25 AM) 168 cm (07/05/23 1:53 PM) Oxygen Saturation [94-100 %] 96 % (07/06/23 12:25 AM) 97 % (07/05/23 10:23 PM) 99 % (07/05/23 8:44 PM) Pulse Rate [55-90 bpm] 82 bpm (07/06/23 12:25 AM) 86 bpm (07/05/23 10:23 PM) 79 bpm (07/05/23 8:44 PM) Blood Pressure [90-138/55-84 mm Hg] 188/83mm Hg *H* (07/06/23 12:25 AM) 160/91mm Hg *H* (07/05/23 10:23 PM) 185/84mm Hg *H* (07/05/23 8:44 PM) Respiratory Rate [16-30 br/min] 17 br/min (07/06/23 12:25 AM) 18 br/min (07/05/23 1:53 PM) 18 br/min (07/05/23 1:46 PM) Temperature [96.8-100.4 DegF] 98.8 DegF (07/06/23 12:25 AM) 99.4 DegF (07/05/23 10:23 PM) 98.8 DegF (07/05/23 8:44 PM) Mode of Delivery (Oxygen) Room air (07/06/23 12:25 AM) Room air (07/05/23 10:23 PM) Room air (07/05/23 8:44 PM) Blood pressure sites Arm, right (07/06/23 12:25 AM) Arm, left (07/05/23 10:23 PM) Arm, left (07/05/23 8:44 PM) Temperature Route Oral (07/06/23 12:25 AM) Oral (07/05/23 10:23 PM) Oral (07/05/23 8:44 PM) Dry Weight 82 kg (07/06/23 12:25 AM) 82 kg (07/05/23 1:53 PM) Dry Weight Obtained Via Patient/family s tated (07/05/23 1:53 PM) Social History Social History Type Response Tobacco Other: Patient shahida santana reports smoking 1-1/2 pack/day and currently working on behavior modification to cut down and eventually quit smoking.. Sex Note * Omer GURROLA, Corrie King: PERFORM Event Display: Patient Education Leaflets Authored Date: External Ear Infection (Adult) ?? [id number] External Ear Infection (Adult) External otitis (also called swimmer???s ear) is an infection in the ear canal. It's often caused by bacteria or fungus. It can occur a few days after water gets trapped in the ear canal (from swimming or bathing). It can also occur after cleaning too deeply in the ear canal with a cotton swab or other object. Sometimes, hair care products get into the ear canal and cause this problem. Symptoms can include pain, fever, itching, redness, drainage, or swelling of the ear canal. Temporary hearing loss may also occur. Home care ??? Don't try to clean the ear canal. This can push pus and bacteria deeper into the canal. ??? Use prescribed ear drops as directed. These help reduce swelling and fight the infection. If an ear wick was placed in the ear canal, apply drops right onto the end of the wick. The wick will draw the medicine into the ear canal even if it's swollen closed. ??? A clean cotton ball may be loosely placed in the outer ear to absorb any drainage. Replace the cotton ball if it becomes soiled or wet. ??? You may use saxi-eow-cwhokhk medicines to control pain as directed by the healthcare provider, unless another medicine??was prescribed. Talk with your provider before using these medicines ifyou have chronic liver or kidney disease or have ever had a stomach ulcer or digestive tract bleeding. ??? Don't allow water to get into your ear when bathing. Also don't swim until the infection hascleared. ?? Prevention ??? Keep your ears dry. This helps lower the risk of infection. Dry your ears with a towel or wheelchair rental clerk after getting wet. Also, use ear plugs when swimming. ??? Don't stick any objects in the ear to remove wax. ??? Talk with your provider about using ear drops to prevent swimmer's ear in case you feel water trapped in your ear canal. You can get these drops over the counter at most drugstores. They work by removing water from the ear canal. ?? Follow-up care Follow up with your healthcare provider in 1 week, or as advised. ?? When to seek medical advice Call your healthcare provider or seek medical care right away if any of these occur: ??? Ear pain becomes worse or doesn???t improve after 3 days of treatment ??? Redness or swelling of the outer earoccurs or gets worse ??? Headache ??? Fever of 100.4??F (38??C) or higher, or as directed by your healthcare provider ?? Call 911 Call 911 or get immediate medical care if any of the following occur: ??? Seizure ??? Unusual drowsiness or confusion ??? Unusual painful or stiff neck ?? Last Reviewed Date: 2022 ?? 1231-1706 [employer]. All rights reserved. This information is not intended as a substitute for professional medical care. Always follow your healthcare professional's instructions. ?? Patient Care team information Care Team Personnel Name: Pardeep GUZMAN, Jennifer oLpez Position: [facility] Outreach Member Role: PCP Address: Address: [address] [place] [address]- Name: Rose Garcia RN Position: [facility] ED RN W/OE and Tasks Member Role: Patient Care Provider Name: Corrie Tello MD Position: [facility] Resident Member Role: ED Resident Address: Address: [address] [place] [address] [place] [address]- Name: Shima March DO Position: [facility] ED Medicine MD Member Role: ED Physician Address: Address: [address] [place] [address]- Care Team Related Persons Name: BIENVENIDO IVORY Address: home [address] [place] [address]
--- OUTSIDE RECORDS SUMMARY | 2024-05-18 06:17 | XMS_ITS | Continuity of Care Document ---
Author Organization [facility] Address [address] [place] [address]- Care Team Providers Care Clerical And Administrative Workers Name Role Phone Pardeep GUZMAN, Jennifer Lopez Primary Care Physician Encounter [facility] Date(s): 04/17/23 - 05/17/23 [facility] [address] [place] [address] Allergies, Adverse Reactions, Alerts No Known Allergies [...] opioid drug. Start Date: 07/15/22 Status: Ordered Social History Social History Type Response Smoking Status 10 or more cigarette s (1/2 pack or more)/day in last 30 days entered on: 07/01/22 Sex Patient Care team information Care Team Personnel Name: Pardeep GUZMAN, Jennifer Lopez Position: S Outreach Member Role: PCP Address: Address: [address] [place] [address]- Care Team Related Persons Name: BIENVENIDO IVORY Address: home [address] [place] [address]
--- OUTSIDE RECORDS SUMMARY | 2024-05-18 06:17 | XMS_ITS | Continuity of Care Document ---
Author Organization [facility] Address [address] [place] [address]- Care Team Providers Care Laborer Pullet Farm Name Role Phone Pardeep GUZMAN, Jessica Primary Care Physician [id number] Date(s): 06/10/23 - 07/24/23 [facility] [address] [place] [id number] Attending Physician: Tirso Millard MD Admitting Physician: Tirso Millard MD Referring Physician: Cresencio GURROLA, Jose Ramon Hanley Allergies, Adverse Reactions, Alerts No Known Allergies [...] Personnel Name: Pardeep GUZMAN, Jennifer Lopez Position: [facility] Outreach Member Role: PCP Address: Address: [address] [place] [address]- Care Team Related Persons Name: BIENVENIDO IVORY Address: home [address] [place] [address]
--- OUTSIDE RECORDS SUMMARY | 2024-05-18 06:17 | XMS_ITS | Continuity of Care Document ---
Author Organization [facility] Address [address] [place] [address]- Care Team Providers Care Physiotherapy Practice Manager Name Role Phone Pardeep GUZMAN, Jennifer Lopez Primary Care Physician Encounter [facility] R [id number] Date(s): 06/24/23 - 07/24/23 [facility] [address] [place], [place] [address] Attending Physician: George Thompson Admitting Physician: AdmtrGeorge Referring Physician: Admtr, Ar8 Allergies, Adverse Reactions, Alerts No Known Allergies [...] Personnel Name: Pardeep GUZMAN, Jennifer Lopez Position: [facility] Outreach Member Role: PCP Address: Address: [address] [place] [address]- [place] Care Team Related Persons Name: BIENVENIDO IVORY Address: home [address] [place] [address]
--- OUTSIDE RECORDS SUMMARY | 2024-05-18 06:17 | XMS_ITS | Continuity of Care Document ---
Author Organization [facility] Address [address] [place] [address]- Care Team Providers Care Systems Integration Analyst Name Role Phone Pardeep GUZMAN, Jennifer Lopez Primary Care Physician [facility] [id number] Date(s): 06/24/23 - 07/01/23 [facility] [address] [place] [address] Attending Physician: Freeman GURROLA, Tirso Gatica Referring Physician: Jose Ramon Dupont MD Allergies, [...] List Condition Confirmation Course Effective Dates Status [facility] atus Informant CKD (chronic kidney disease) stage 3, GFR 30-59 ml/min Confirmed Active COPD (chronic obstructive pulmonary disease) Confirmed Active CAD (coronary artery disease) Confirmed Active Diabetes Confirmed Active History of Prostate cancer Confirmed Active History of Myocardial infarction x5 Confirmed Active TOMÁS (obstructive sleep apnea) Confirmed Active Procedures Procedure Date Related Diagnosis Body Site Status Endovascular AAA repair, ins ertion of IVC filter Completed Vital Signs Most recent to oldest [Reference Range]: 1 Height 168 cm (06/24/23 8:44 AM) Weight 82.8 kg (06/24/23 8:44 AM) Oxygen Saturation [94-100 %] 98 % (06/24/23 8:44 AM) Pulse Rate [55-90 bpm] 71 bpm (06/24/23 8:44 AM) Body Mass Index [18.5-24.99 kg/m2] 29.34 kg/m2 *H* (06/24/23 8:44 AM) Blood Pressure [90-138/55-84 mm Hg] 144/ 74mm Hg *H* (06/24/23 8:44 AM) Respiratory Rate [16-30 br/min] 16 br/mi n (06/24/23 8:44 AM) Mode of Delivery (Oxygen) Room air (06/24/23 8:44 AM) Blood pressure sites Arm, right (06/24/23 8:44 AM) Weight Obtained Via Standing scale (06/24/23 8:44 AM) Social History Social History Type Response Tobacco Other: Patient shahida santana reports smoking 1-1/2 pack/day and currently working on behavior modification to cut down and eventually quit smoking.. Sex Patient Care team information Care Team Personnel Name: Pardeep GUZMAN, Jennifer Lopez Position: [facility] Outreach Member Role: PCP Address: Address: [address] [place] [address]- Care Team Related Persons Name: BIENVENIDO IVORY Address: home [address] [place] [address]
== END 2024-05-12 17:06 | disposition home or self-care (01) ==
PROVIDERS: Nurse Practitioner Family; Physician Assistant; Emergency Provider Emergency Medicine Emergency Medical Services; PCP Internal Medicine
DX: S46.911A Strain of unspecified muscle, fascia and tendon at shoulder and upper arm level, right arm, initial encounter (principal); M25.511 Pain in right shoulder; H66.93 Otitis media, unspecified, bilateral; R51.9 Headache, unspecified; M54.2 Cervicalgia; W18.2XXA Fall in (into) shower or empty bathtub, initial encounter; Y93.89 Activity, other specified; Y92.091 Bathroom in other non-institutional residence as the place of occurrence of the external cause; Y99.8 Other external cause status
CPT/HCPCS: 36415; 70450; 72125; 73030; 80048; 85025; 87389; 99283; 99284

== ENCOUNTER 2024-05-24 14:27 | Outpatient (AMB) | payer MEDICARE, SELFPAY ==
--- NOTE | 2024-05-24 14:57 | A.OFFVIS_ITS ---
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 Patient reports having a fall in the tub a week prior to his ER visit on 05/12/24. He has throbbing pain that radiates down from his shoulder and in to his neck. States with applying pressure to his elbow he has pain that radiates down to his wrist. Hx of fall 9 years ago that caused a fracture in his neck, upper back, mid and lower back. HX of shoulder injections in the past. Allergies No Known Allergies Allergy (Verified 05/24/24 15:09) HPI HPI ENVIRONMENTAL SERVICES TECHNICIAN right shoulder injury: Details: Patient is a 69-year-old male who presents for evaluation of right shoulder pain, ongoing for approximately 3 weeks. The patient reports that, at that time, he experienced a fall into his tub, and he has been experiencing significant discomfort in the shoulder since that time. Patient reports that this pain does occasionally radiate down into his right elbow, and all the way down to the wrist. Patient was previously evaluated in the ED on 05/12/2024 for this shoulder pain, where x-rays were taken revealing severe arthritic changes of the right shoulder, but no fracture or acute bony abnormality. Of note, the patient reports that he has experienced pain like this in the past, for which he received shoulder injections, with good relief. Patient denies any numbness or tingling in the right upper extremity. No other acute complaints or concerns at this time. [facility] Social History (Updated 05/24/24 @ 15:15 by Alexandra Browning Dina) Patient Tobacco Use Status: Current everyday Tobacco user Advance Directives Date on File: 05/12/24 Current occupation: right hand dominant Review of Systems Const All systems reviewed & are unremarkable except as noted in HPI and below Physical Exam Vital Signs: BMI result Body Mass Index 27.9 Extrem Other: On inspection, there is no visible abnormality of the right shoulder No edema, erythema, ecchymosis noted No evidence of infection noted No lacerations, abrasions, or open areas noted Patient reports mild tenderness to palpation about the posterior right shoulder Patient reports no tenderness to palpation over the AC joint, humeral head, acromion, or clavicle Patient is able to forward flex the right shoulder to 90 degrees without difficulty, but experiences pain beyond 90 degrees Patient is able to externally rotate the right shoulder show approximately 45-50 degrees, slightly decreased from left side Negative empty can test Negative belly press test Unable to assess lift-off due to limited range of motion Negative Jones[facility] Procedures Joint Injection/Aspiration Joint Injection/Aspiration Primary Site: right shoulder Prep: site was prepped using aseptic technique and ethochloride spray was applied Injected: 80 mg of, DepoMedrol, with 4 mL of, 1% plain lidocaine and in the subcromial space Procedure: The patient tolerated the procedure well and there was some relief with the local anesthesia Coding - Large joint Procedure code (CPT) selection complete Results Reviewed Results Reviewed: X-rays obtained in the emergency department on a 24 and independently reviewed by me, Rojas Velazco PA-C, demonstrate moderate to severe arthritic changes of the right shoulder, no fracture or acute bony abnormality noted. Assessment & Plan Assessment & Plan (1) Primary osteoarthritis, right shoulder: Code(s): M19.011 - Primary osteoarthritis, right shoulder Category: Medical Plan 1. Right shoulder pain 2. Osteoarthritis of right shoulder I educated the patient about this condition, and discussed various treatment options available to him Patient would like to proceed with injection, as he has had good relief of similar pain with previous injections The risks and benefits of a steroid injection including but not limited to risk of damage to blood vessels, nerves, tendons, infection, skin bleaching, failure to improve symptoms, increased pain, and possible need for further injections or other intervention were discussed with the patient and the patient wishes to proceed with the steroid injection. Once consent was obtained, I aseptically prepped the area over the subacromial area of the right shoulder. I then injected the subacromial area with a combination of 80 mg of dexamethasone and 8 mL of 1% lidocaine. The patient tolerated the procedure well with no complications. If the patient continues to experience symptoms over the following few weeks or months, they can make an appointment to return and discuss alternative treatment measures, such as physical therapy. Follow-up prn Coding Level of Care Code New Pt Level 3 (86562) Diagnoses Primary osteoarthritis, right shoulder M19.011 CPT Codes Coding - Large joint: 34798 - Large joint ([id number])
[2024-05-24 15:19] VITALS: BMI 27.9
== END 2024-05-24 15:54 | disposition home or self-care (01) ==
PROVIDERS: PCP Internal Medicine
DX: M19.011 Primary osteoarthritis, right shoulder (principal)
CPT/HCPCS: 20610; 99203

== ENCOUNTER → 2024-05-24 14:27 | Outpatient (BNVA) | payer MEDICARE, SELFPAY | PROVIDERS: PCP Internal Medicine | DX: M19.011 Primary osteoarthritis, right shoulder (principal) | CPT/HCPCS: 20610; 99202; J1010 ==

== ENCOUNTER 2024-07-15 12:20 | Outpatient (REF) | payer MEDICARE, SELFPAY ==
--- NOTE | ~2024-07-15 | CT_ITS ---
EXAMINATION: CT SINUS WITHOUT CONTRAST CLINICAL INFORMATION: Deviated nasal septum. COMPARISON: No prior sinus CT. Head CT dated 05/12/2024. TECHNIQUE: Spiral noncontrast CT of the paranasal sinuses and maxillofacial region was performed in axial plane. Examination was carried out from the inferior maxilla to the mid temporal parietal bones, just above the petrous ridges. Sagittal, coronal, and thin section axial reformatted images were reconstructed from the axial data set. This CT examination was performed using dose optimization techniques as appropriate, variously including the following: *Automated exposure control *Adjustment of mA and/or kV according to patient size (this includes techniques or standardized protocols for targeted exams where dose is matched to indication/reason for exam; i.e. extremities or head) *Use of iterative reconstruction technique DLP: 116 mGy-cm FINDINGS: POSTOPERATIVE FINDINGS: -None. MAXILLARY DENTAL FINDINGS: -There are periapical lucencies involving tooth #3, involving both the palatal and buccal root tips (series 2, image 6). -There may be additional carious lesions also evaluation is limited by streak artifact from dental amalgam. NASAL CAVITY: -Normal pneumatization. No masses. -The nasal septum is posteriorly minimally left deviated. No spur. TURBINATES: -Aerated lamellar cell in the right middle turbinate. Middle turbinates otherwise normal. Superior and inferior turbinates normal. MAXILLARY SINUSES: -Minimal mucosal thickening present in the region of the ostia. Maxillary antra are otherwise clear. -Maxillary ostia are minimally narrowed by mucosal thickening bilaterally, as well as partial Hannah cells bilaterally, however thin patent air channels remain present. ETHMOID SINUSES: -Trace bilateral scattered mucosal thickening. FRONTAL SINUSES: -Normally pneumatized bilaterally. -Mild narrowing of the frontal recesses is present due to prominent bilateral agger nasi cells. There are channels remain patent. SPHENOID SINUSES: -Normally pneumatized bilaterally. -Sphenoethmoidal recesses are patent bilaterally. PREOPERATIVE ANATOMY: -There are type II cribriform plates. The right is slightly lower. -The fovea ethmoidalis and lateral lamella are lower on the right. -Multiple anterior ethmoid canals are surrounded by air. ADDITIONAL FINDINGS: -The globes and orbital contents appear normal. Extracranial soft tissues demonstrates innumerable cutaneous calcifications throughout the scalp and facial soft tissues. These are of uncertain etiology. -Imaged intracranial contents demonstrate no mass effect, edema, or intracranial hemorrhage. -Mastoids are underpneumatized. There is opacity in the right middle ear cavity and mastoid antrum on both sides. There is extensive cerumen present within the left EAC abutting the tympanic. There is narrowing of the right EAC of uncertain etiology. -Normal TM joints. CT/CT sinus wo IV con IMPRESSION: 1. Minimal scattered paranasal sinus disease. No air-fluid levels or evidence of acute sinusitis. 2. All major paranasal sinus drainage pathways are patent without obstruction. 3. Anatomical variations as described above. There is minimal left deviation of the posterior nasal septum without spur. 4. Periapical lucencies within involving the palatal and buccal root tips of right maxillary tooth #3. This can be associated with sinus symptoms. 5. Opacity in both mastoid antra and partial opacity in both middle ear cavities. 6. Cerumen impaction in the left EAC. Electronically signed by: Flavio Samaniego MD 08/08/2024 03:29 PM HUMERA HERNANDEZ
== END 2024-07-15 12:21 | disposition home or self-care (01) ==
LOC: HO.CT 12:20
PROVIDERS: PCP Internal Medicine; Visit Provider Otolaryngology
DX: J43.2 Centrilobular emphysema (principal)
CPT/HCPCS: 70486

== ENCOUNTER → 2024-07-15 12:23 | Outpatient (BNV) | payer MEDICARE, SELFPAY | PROVIDERS: PCP Internal Medicine; Visit Provider Radiology Diagnostic Radiology | DX: J34.2 Deviated nasal septum (principal) | CPT/HCPCS: 70486 ==

== ENCOUNTER 2024-12-26 11:50 | Outpatient (REF) | payer OTHER, SELFPAY ==
--- OUTSIDE RECORDS SUMMARY | 2024-12-26 13:38 | XMS_ITS | Clinical Summary ---
Author Organization [facility] [address] [facility] Address [address] [place] [address] Phone Care Team Providers Care Delinquent Account Clerk Name Role Phone Arcadio Jorgensen MD Primary Care Provider [phone] Allergies Active Allergy Reactions Criticality Noted Date Comments Bupropion 11/28/2022 Medications Bacillus coagulans-inuli n 1 billion-250 cell-mg capsule Take 250 mg by mouth 1 (one) time each day. Active acetaminophen (TYLENOL) 500 mg tablet Take 2 tablets (1,000 mg total) by mouth every 8 (eight) hours. as directed for 30 days Active aspirin 81 mg EC tablet Take 1 tablet (81 mg total) by mouth 1 (one) time each day. 03/29/20 24 Active albuterol HFA (PROAIR HFA ; PROVENTIL HFA ; VENTOLIN HFA) 90 mcg/actuation inhaler Inhale 2 puffs by mouth every 4 (four) hours if needed for wheezing or shortness of breath. 6.7 g 1 08/10/20 24 Active albuterol HFA (PROAIR HFA ; PROVENTIL HFA ; VENTOLIN HFA) 90 mcg/actuation inhaler Inhale 2 Puffs into the lungs every 4 hours as needed for Cough, Wheezing or Shortness of Breath. 03/29/20 24 Active fluticasone propionate (FLONASE) 50 mcg/actuation nasal spray 2 Sprays by Each Nare route daily. Active pantoprazole (PROTONIX) 40 mg EC tablet Take 1 tablet (40 mg total) by mouth 1 (one) time each day. 03/29/20 24 Active rosuvastatin (CRESTOR) 40 mg tablet Take 1 tablet (40 mg total) by mouth 1 (one) time each day. 03/29/20 24 Active albuterol 2.5 mg /3 mL (0.083 %) nebulizer solutionIndicat ions:Pulmonary hypertension ([facility]) Take 3 mL (2.5 mg total) by nebulization every 6 (six) hours if needed for shortness of breath or wheezing. 75 mL 3 08/12/20 24 Active oxyBUTYnin (DITROPAN) 5 mg tablet Take 1 tablet (5 mg total) by mouth 1 (one) time each day. 09/07/20 24 Active lisinopriL (PRINIVIL,ZESTR IL) 20 mg tablet Take 1 tablet (20 mg total) by mouth 1 (one) time each day. Active OneTouch Ultra Test test strip Onetouch glucometer, to check sugars twice daily E11.9 100 each 5 09/12/20 24 Active lancets 30 gauge misc Onetouch glucometer, to check sugars twice daily E11.9 100 each 5 09/12/20 24 Active pen needle, diabetic (BD Ultra-Fine Short Pen Needle) 31 gauge x 16 needle Use to inject 1-4 times daily as directed 100 each 2 09/14/20 24 Active hydrOXYzine HCL (ATARAX) 25 mg tablet TAKE 1 TABLET BY MOUTH THREE TIMES DAILY NEEDED FOR ITCHING 90 tablet 1 09/29/19 25 Active OneTouch Ultra2 Meter miscIndications :Type 2 diabetes mellitus with hyperglycemia, with long-term current use of insulin ([facility]) USE DIRECTED TWICE DAILY 1 each 10/11/19 25 Active insulin glargine (Lantus Solostar U-100 Insulin) 100 unit/mL (3 mL) injection pen Use 44 units at bedtime, increase by 2 units every 3 days with a max dose of 60 units daily, if fasting sugar is above 130. 45 mL 2 10/24/19 25 Active clonazePAM (KlonoPIN) 1 mg tablet TAKE 1 TABLET(1 MG) BY MOUTH TWICE DAILY NEEDED FOR ANXIETY 20 tablet 3 10/31/19 25 Active clonazePAM (KlonoPIN) 1 mg tablet TAKE 1 TABLET(1 MG) BY MOUTH TWICE DAILY NEEDED FOR ANXIETY 20 tablet 11/01/19 25 Active cloNIDine (CATAPRES) 0.2 mg tablet Take 1 tablet (0.2 mg total) by mouth 3 (three) times a day. 90 tablet 1 12/16/19 25 Active cloNIDine (CATAPRES) 0.2 mg tablet Take 1 tablet (0.2 mg total) by mouth 3 (three) times a day. 90 tablet 1 10/21/19 25 2024 Discontinued Active Problems Problem Noted Date Diagnosed Date Rectal or anal pain 10/07/2024 Type 2 diabetes mellitus wit h hyperglycemia, with long-term current use of insulin 09/12/2024 Diabetes mellitus type 2 in nonobese 08/31/2024 Assessment & Plan (09/14/2024 1:28 PM EST): Diabetes need better control Aneurysm of aorta 11/28/2022 Coronary artery disease invo lving picayune coronary artery of picayune heart without angina pectoris 11/28/2022 Overview (08/10/2024): W/ Chronic RCA Occlusion Dyspnea on exertion 11/28/2022 HLD (hyperlipidemia) 11/28/2022 Myocardial infarction 11/28/2022 Overview (08/10/2024): x5 PAD (peripheral artery disease) 11/28/2022 Primary hypertension 11/28/2022 Assessment & Plan (09/14/2024 1:28 PM EST): Hypertension is under control Pulmonary hypertension 11/28/2022 Encounters Date Type Department Care Team Description 10/24/2024 2:00 PM EST Office Visit Endocrinology - [place] [place] [address] [place] [address] Meli Elizalde PA Type 2 diabetes mellitus with hyperglycemia, with long-term current use of insulin ([facility]) (Primary Dx); Primary hypertension 10/14/2024 10:14 AM EST - 10/14/2024 11:59 PM EST Hospital Encounter [facility] CT Scan [address] [place] [address] Rectal or anal pain Discharge Disposition: Home or Self Care 10/12/2024 Telephone Endocrinology - [place] [address] [place] [address] Meli Elizalde PA Blood Sugar Problem; blood sugar over 400 10/12/[address] [phone] Dawood Contreras MD Advice Only 10/12/[address] [phone] Arcadio Jorgensen MD 10/07/2024 9:30 AM EST Consult [address] [phone] Dawood Contreras MD Rectal or anal pain (Primary Dx); Rectal pressure from Last 3 Months Surgical History Surgery Date Site/Laterality Comments OTHER SURGICAL HISTORY 2011 PROCEDURE: HISTORY OTHER; COMMENT: Abdminal Aortic Aneurysm endovascular repair APPENDECTOMY PROCEDURE: HISTORICAL APPENDECTOMY CARDIAC CATHETERIZATION PROCEDURE: HISTORICAL CARDIAC CATH; COMMENT: 2014 OTHER SURGICAL HISTORY PROCEDURE: IA PATIENT HAS A CORONARY ARTERY STENT OTHER SURGICAL HISTORY PROCEDURE: HISTORY OTHER; COMMENT: Iliac Stent HERNIA REPAIR PROCEDURE: HISTORICAL HERNIA REPAIR/ING; COMMENT: OTHER SURGICAL HISTORY 04/2020 PROCEDURE: HISTORY OTHER; COMMENT: LCX Drug Eluting Stent OTHER SURGICAL HISTORY PROCEDURE: IA MYRINGOTOMY ASPIR&/EUSTACHIAN TUBE NFLTJ OTHER SURGICAL HISTORY 2006 PROCEDURE: HISTORY OTHER; COMMENT: RCA Bare Metal Stent OTHER SURGICAL HISTORY PROCEDURE: HISTORY OTHER; COMMENT: Renal artery stent TONSILLECTOMY PROCEDURE: HISTORICAL TONSILLECTOMY TURP / TRANSURETHRAL INCISIO N / DRAINAGE PROSTATE PROCEDURE: HISTORICAL TURP Medical History Medical History Date Comments Anxiety DX:Anxiety Sleep apnea DX:Sleep apnea Benign prostatic hyperplasia DX: Benign prostatic hyperplasia Chest pain DX:Chest pain COPD (chronic obstructive pu lmonary disease) ([facility]) DX:COPD (chronic obstructive pulmonary disease) ([facility]) DVT (deep venous thrombosis) ([facility]) DX:DVT (deep venous thrombosis) ([facility]) Diabetes mellitus, type 2 ([facility]/HCC) DX:Diabetes mellitus, type 2 (HCC) Edema DX:Edema Embolism and thrombosis of a rtery ([facility]) 2011 DX:Embolism and thrombosis o f artery (HCC) Encephalitis DX:Encephalitis History of falling, presenti ng hazards to health DX:History of falling, prese nting hazards to health Fatigue DX:Fatigue Fibromyalgia DX:Fibromyalgia Hallucinations DX:Hallucination s Kidney disease DX:Kidney diseas e Leg edema, left DX:Leg edema, le ft Obesity DX:Obesity Osteoarthritis DX:Osteoarthriti s Prostate cancer (CMS/HCC) DX:Pro state cancer (HCC) Renal artery stenosis (CMS/HCC) DX:Renal artery stenosis (HCC) Stage 3 chronic kidney disea se (CMS/HCC) DX:Stage 3 chronic kidney di sease (HCC) Urinary incontinence DX:Urinary incontinence GERD (gastroesophageal reflux disease) DX:GERD (gastroesophageal reflux disease) Arthritis DX:Arthritis Depression DX:Depression Type II diabetes mellitus (CMS/HCC) DX:Type II diabetes mellitus (HCC) Skin cancer DX:Skin cancer H/O bladder problems DX:H/O blad avis problems Hearing impaired DX:Hearing impa ired Hepatitis C 11/28/2022 DX:Hepatitis C Family History Medical History Relation Name Comments Heart attack Brother Relation Name Status Comments Brother Alive Father Maternal Grandmother Mother Paternal Grandfather Social History Tobacco Use Types Packs/Day Years Used Date Smoking Tobacco: Every Day Cigarettes Smokeless Tobacco: Never Alcohol Use Standard Drinks/Week Comments Yes 0 (1 standard drink = 0.6 oz pur e alcohol) Housing Instability Answer Date Recorde d Are you worried that in the next 2 months you may not have stable housing? No 09/07/2024 Food Access & Nutrition Answer Date Rec orded Do you have access to a vari ety of food including fruits and vegetables? Yes 09/07/2024 Access to Healthcare Answer Date Record ed Within the last 3 months, ho w many times did you visit the emergency department for your medical care? 0 09/07/2024 Health Literacy Answer Date Recorded How often do you need to hav e someone help you when you read instructions, pamphlets, or other written material from your doctor or pharmacy? Sometimes 09/07/2024 Caregiver: How often do you need to have someone help you when you read instructions, pamphlets, or other written material from your doctor or pharmacy? Not on file 09/07/2024 Financial Risk Answer Date Recorded How hard is it for you to pa y for the very basics like food, housing, medical care, and air conditioning / heating? Somewhat hard 09/07/2024 Transportation Answer Date Recorded Has the lack of transportati on kept you from meetings, work, or from getting things needed for daily living? No Has the lack of transportati on kept you from medical appointments or from getting medications? No 09/07/2024 Social Isolation Answer Date Recorded How often do you feel lonely or isolated from th ose around you? Often 09/07/2024 Food Risk Answer Date Recorded Within the past 12 months we worried whether our food would run out before we got money to buy more. Never true 09/07/2024 Within the past 12 months th e food we bought just didn't last and we didn't have money to get more. Never true 09/07/2024 Dependent Care Answer Date Recorded Do you need help finding or paying for care for your loved ones. For example, children's ministries director or elderly care for an older adult? No 09/07/2024 Education Answer Date Recorded Do you think completing more education or training, like finishing a GED, going to college, or learning a trade, would be helpful for you? No 09/07/2024 Employment and Income Answer Date Recor ded During the last four weeks, have you been actively looking for work? No 09/07/2024 Living Situation Answer Date Recorded What is your living situation? 1 11/08/2023 Sex and Gender Information Value Date Recorded Sex Assigned at Male 09/01/2024 10:38 AM EST Legal Sex Male 8:32 PM EST Gender Identity Male 09/01/2024 10:38 AM EST Sexual Orientation Lesbian or Berg 09/01/2024 10 :38 AM EST Obstetrics History Last Filed Vital Signs Vital Sign Reading Time Taken Comments Blood Pressure 106/67 10/24/2024 2:31 PM EST Pulse 78 10/24/2024 2:27 PM EST Temperature 36.1 ??C (97 ??F) 10/24/2024 2:27 PM EST Respiratory Rate - - Oxygen Saturation 94% 10/24/2024 2:27 PM EST Inhaled Oxygen Concentration - - Weight 79.4 kg (175 lb) 10/24/2024 2:27 PM EST Height 167.6 cm (5' 6 ) 10/24/2024 2:27 PM EST Body Mass Index 28.25 10/24/2024 2:27 PM EST Plan of Treatment Upcoming Encounters Date Type Department Care Team (Late st Contact Info) Description 12/29/2024 1:40 PM EDT Office Visit [facility] [address] [place] [phone] Andre Crawford NP [address] [place] [address] [address] [place] [address] 12/30/2024 1:20 PM EDT Office Visit Endocrinology - [place] [address] [place] [phone] Meli Elizalde PA [address] [place] [address] Health Maintenance Due Date Last Done Comments COVID-19 Vaccine (#1) 1962 Diabetes: Annual Foot Exam 1967 Diabetes: Annual Retina Eye Exam 1967 DTaP,Tdap,and Td Vaccines (1 - Tdap) 1976 Pneumococcal Vaccine: 50+ Years (1 of 2 - PCV) 1976 Zoster Vaccines (1 of 2) 1976 RSV Immunization Patients 60 + Years Old (1 - Risk 60-74 years 1-dose series) 2017 Colorectal Cancer Screening: Colonoscopy 10/23/2023 Hepatitis C Screening 10/23/2023 Lung Cancer Screening (Low Dose CT) 10/23/2023 Medicare Annual Wellness Visit 10/23/2023 Influenza Vaccine (#1) 2024 08/30/2022 Diabetes: Annual Urine Albumin-Creatinine Ratio (uACR) 12/01/2024 12/02/2023 Diabetes: Annual GFR (Glomerular Filtration Rate) 03/11/2025 03/11/2024, 03/11/2024 Hypertension/CHF/CAD Annual BMP Blood Test 03/11/2025 03/11/2024, 03/11/2024 Diabetes: Blood Sugar Contro l Test (HGBA1C) 06/18/2025 12/16/2024, 09/07/2024 Social Influencers of Health Screening 09/07/2025 09/07/2024 Depression Screening 09/14/2025 09/14/2024 Falls Risk Assessment 09/14/2025 09/14/2024 Cholesterol Screening (Lipid Panel) 03/11/2029 03/11/2024, 03/11/2024 HIB Vaccines Aged Out No longer eligi ble based on patient's age to complete this topic HPV Vaccines Aged Out No longer eligi ble based on patient's age to complete this topic Hepatitis A Vaccines Aged Out No long er eligible based on patient's age to complete this topic Hepatitis B Vaccines Aged Out No long er eligible based on patient's age to complete this topic IPV Vaccines Aged Out No longer eligi ble based on patient's age to complete this topic MMR Vaccines Aged Out No longer eligi ble based on patient's age to complete this topic Meningococcal ACWY Vaccine Aged Out N o longer eligible based on patient's age to complete this topic Meningococcal B Vacine Aged Out No lo nger eligible based on patient's age to complete this topic RSV Immunization Patients Under 20 months Aged Out No longer eligible b ased on patient's age to complete this topic Varicella Vaccines Aged Out No longer eligible based on patient's age to complete this topic Procedures Procedure Name Priority Date/Time Associated Diagnosis Comments VITAMIN B12 Routine 12/16/2024 12:36 PM EDT Vitamin B12 deficiency INTRINSIC FACTOR BLOCKING ANTIBODY Routine 12/16/2024 12:36 PM EDT Vitamin B12 deficiency HEMOGLOBIN A1C Routine 12/16/2024 12:36 PM EDT Type 2 diabetes mellitus with hyperglycemia, with long-term current use of insulin ([facility]) CT ABDOMEN PELVIS W CONTRAST Routine 10/14/2024 10:47 AM EST Rectal or anal pain ANNUAL BMP BLOOD TEST Routine 03/11/2024 LIPID PANEL Routine 03/11/2024 URINE ALBUMIN CREATININE RATIO Routine 12/02/2023 from Last 3 Months or Most Recently Relevant to Health Maintenance Results * Intrinsic factor blocking antibody (12/16/2024 12:36 PM EDT) [facility] Intrinsic Factor Blocking Antibody Negative Negative 12/19/2024 4:18 PM EDT [facility] Comment: Positive in 50% of persons with pernicious anemia. Very high serum levels of vitamin B12 may give false positive results for intrinsic factor antibody. ??No sample should be collected from a patient who has received vitamin B12 injection therapy within the past week. Test performed at [facility], [address] , [place], [place] ??[address] ? [phone] Nakita Corrales MD, PhD - Cell Lead Blood Venous blood specimen / Unknown Venipuncture / Unknown 12/16/2024 12:36 PM EDT 12/16/2024 12:36 PM EDT us Arcadio Jorgensen MD LAB BLOOD ORDERABLES Final Resul t [facility] [address] [place] [address] * (ABNORMAL) Hemoglobin A1c (12/16/2024 12:36 PM EDT) [facility] Hemoglobin A1C 9.8(H) <6.5 % LAB CHEMISTRY METHOD 12/16/2024 10:06 PM EDT [facility] Mean Bld Glu Estim. 235 mg/dL LAB CHEMISTRY METHOD 12/16/2024 10:06 PM EDT [facility] Blood Venous blood specimen / Unknown Venipuncture / Unknown 12/16/2024 12:36 PM EDT 12/16/2024 12:36 PM EDT us Meli CHAUHAN LAB BLOOD ORDERABLES Final Resul t [facility] [address] [place] [address], [place] [phone] * Vitamin B12 (12/16/2024 12:36 PM EDT) Vitamin B-12 871 250 - 900 pcg/mL LAB CHEMISTRY METHOD 12/16/2024 6:32 PM EDT [facility] Blood Venous blood specimen / Unknown Venipuncture / Unknown 12/16/2024 12:36 PM EDT 12/16/2024 12:36 PM EDT us Arcadio Jorgensen MD LAB BLOOD ORDERABLES Final Resul t [facility] [address] [place] [address], [place] [phone] * CT Abdomen Pelvis w Contrast (10/14/2024 10:47 AM EST) Anatomical Region Laterality Modality Body Computed Tomogra phy 10/21/2024 12:3 2 PM EST Impressions 10/21/2024 12:50 PM EST No abscess around the rectum. Indwelling balloon catheter in the urinary bladder is relatively low lying. Slight dilation of the region of the prosthetic urethra. No convincing insufficiency fracture in the sacrum. Left renal atrophy. Extensive vasculopathy. I cannot confirm patency of the right external iliac artery. ?? -------- FINAL REPORT -------- Dictated By: Raleigh Winters Dictated Date: 10/21/2024 12:32 ET Assigned Physician: Raleigh Winters Reviewed and Electronically Signed By: Raleigh Winters Signed Date: 10/21/2024 12:50 ET Workstation ID: [id number] Transcribed By: Self Edit Transcribed Date: 10/21/2024 12:32 ET Narrative 10/21/2024 12:50 PM EST EXAMINATION: CT ABDOMEN/PELVIS WITH IV CONTRAST CLINICAL INFORMATION: Chronic anorectal pain. ??Urinary/prostate issues. Remote prostate radiation. Clinical concern for sacral insufficiency fracture. COMPARISON: Selected portions of previous fibroid 14 2023 ?? TECHNIQUE: Multidetector CT. Helical examination of the abdomen and pelvis. Imaging performed after the IV administration of contrast. Reformatting in the coronal and sagittal planes. DLP: 1016 mGy-cm Dose optimization was performed including the use of low-dose iterative reconstruction technique with automatic exposure control based on patient size. Type of contrast: ISOVUE 370 Volume of IV contrast: 90 mL Volume of contrast discarded: 0 mL FINDINGS: LIVER: The right lobe of the liver measures 16.0 cm which is close to the mean expected. The liver contour is smooth. There is no suspicious focal liver lesion. ?? BILIARY TRACT: ??There is no opaque gallstone. There is no opaque bile duct calculus. The common duct measures approximately 0.9 cm but appears to taper at the ampulla. SPLEEN: The spleen measures 10.0 cm. No focal abnormality. ?? PANCREAS: Within normal limits. ?? ADRENAL GLANDS: Normal ?? KIDNEYS: The left kidney is significantly smaller than the right with an irregular contour. There appears to be a stent at the origin of the left renal artery. I cannot confirm patency. There are areas of diminished perfusion in the small left kidney. There are circumscribed cysts in each kidney. The right ureter is top normal in caliber without a definite opaque calculus. ?? GASTROINTESTINAL TRACT: ?There is no abnormality in the ischiorectal fossa on either side. There is no obvious mass in the lower rectum. No perirectal collection. There is a moderate amount of fecal residue throughout the colon including the proximal colon. Contrast is present in the colon. There are normally distributed normal caliber contrast-filled small bowel loops. No suspicious abnormality of the stomach. URINARY BLADDER: ??There is a bladder catheter with a balloon present. The bladder wall is thickened. The balloon catheter is in a similar position to previous. There is some equivocal low-attenuation surrounding the catheter proximal to the balloon in the region of the prostatic urethra PELVIC VISCERA: ??The seminal vesicles are symmetric. The interface between the seminal vesicles and bladder/prostate is somewhat indistinct. No definite abscess. As described there is some widening of the prostatic urethra just below the balloon. ABDOMINAL WALL: Some mild asymmetric fat protrudes into the left inguinal canal. ?? LYMPHOVASCULAR STRUCTURES AND FLUID: Extensive atherosclerotic calcification. Scattered tiny soft tissue calcifications throughout the visualized body wall and in the area around the coccyx. There has been aortobiiliac stent graft placement. There is a stent at the origin of the left renal artery. Difficult to confirm patency of the right external iliac artery but there is reconstitution of the right common femoral artery. I cannot confirm patency of the inferior mesenteric artery. The celiac and SMA enhance proximally. There are no suspicious lymph nodes. There is no significant free intraperitoneal fluid. ?? VISUALIZED LOWER CHEST: Marked coronary calcification. Minor reticular right lower lobe opacities could be postinflammatory. ?? MUSCULOSKELETAL: No acute or suspicious osseous abnormality. ??Unchanged refection of S4 is nonspecific. There is degenerative change in the spine. There is no convincing sacral insufficiency fracture. Procedure Note Raleigh Winters MD - 10/21/2024 EXAMINATION: CT ABDOMEN/PELVIS WITH IV CONTRAST CLINICAL INFORMATION: Chronic anorectal pain. Urinary/prostate issues. Remote prostateradiation. Clinical concern for sacral insufficiency fracture. COMPARISON: Selected portions of previous fibroid 14 2023 TECHNIQUE: Multidetector CT. Helical examination of the abdomen and pelvis. Imaging performed after the IV administration of contrast. Reformatting in the coronal and sagittal planes. DLP: 1016 mGy-cm Dose optimization was performed including the use of low-dose iterativereconstruction technique with automatic exposure control based on patientsize. Type of contrast: ISOVUE 370 Volume of IV contrast: 90 mL Volume of contrast discarded: 0 mL FINDINGS: LIVER: The right lobe of the liver measures 16.0 cm which is close to themean expected. The liver contour is smooth. There is no suspicious focalliver lesion. BILIARY TRACT: There is no opaque gallstone. There is no opaque bile ductcalculus. The common duct measures approximately 0.9 cm but appears totaper at the ampulla. SPLEEN: The spleen measures 10.0 cm. No focal abnormality. PANCREAS: Within normal limits. ADRENAL GLANDS: Normal KIDNEYS: The left kidney is significantly smaller than the right with anirregular contour. There appears to be a stent at the origin of the leftrenal artery. I cannot confirm patency. There are areas of diminishedperfusion in the small left kidney. There are circumscribed cysts in eachkidney. The right ureter is top normal in caliber without a definiteopaque calculus. GASTROINTESTINAL TRACT: There is no abnormality in the ischiorectalfossa on either side. There is no obvious mass in the lower rectum. Noperirectal collection. There is a moderate amount of fecal residuethroughout the colon including the proximal colon. Contrast is present inthe colon. There are normally distributed normal caliber contrast-filled small bowelloops. No suspicious abnormality of the stomach. URINARY BLADDER: There is a bladder catheter with a balloon present. Thebladder wall is thickened. The balloon catheter is in a similar positionto previous. There is some equivocal low-attenuation surrounding thecatheter proximal to the balloon in the region of the prostatic urethra PELVIC VISCERA: The seminal vesicles are symmetric. The interface betweenthe seminal vesicles and bladder/prostate is somewhat indistinct. Nodefinite abscess. As described there is some widening of the prostaticurethra just below the balloon. ABDOMINAL WALL: Some mild asymmetric fat protrudes into the left inguinalcanal. LYMPHOVASCULAR STRUCTURES AND FLUID: Extensive atheroscleroticcalcification. Scattered tiny soft tissue calcifications throughout thevisualized body wall and in the area around the coccyx. There has beenaortobiiliac stent graft placement. There is a stent at the origin of theleft renal artery. Difficult to confirm patency of the right externaliliac artery but there is reconstitution of the right common femoralartery. I cannot confirm patency of the inferior mesenteric artery. Theceliac and SMA enhance proximally. There are no suspicious lymph nodes. There is no significant freeintraperitoneal fluid. VISUALIZED LOWER CHEST: Marked coronary calcification. Minor reticularright lower lobe opacities could be postinflammatory. MUSCULOSKELETAL: No acute or suspicious osseous abnormality. Unchangedrefection of S4 is nonspecific. There is degenerative change in the spine.There is no convincing sacral insufficiency fracture. IMPRESSION: No abscess around the rectum. Indwelling balloon catheter in the urinary bladder is relatively lowlying. Slight dilation of the region of the prosthetic urethra. No convincing insufficiency fracture in the sacrum. Left renal atrophy. Extensive vasculopathy. I cannot confirm patency ofthe right external iliac artery. -------- FINAL REPORT -------- Dictated By: Raleigh Winters Dictated Date: 10/21/2024 12:32 ET Assigned Physician: Raleigh Winters Reviewed and Electronically Signed By: Raleigh Winters Signed Date: 10/21/2024 12:50 ET Workstation ID: [id number] Transcribed By: Self Edit Transcribed Date: 10/21/2024 12:32 ET us Dawood Contreras MD IM CT PROCEDURES Final Res ult * Annual BMP Blood Test (03/11/2024) Pathologist [facility] Annual BMP Blood Test abstracted Historical Provider HEALTH MAINTENANCE Final Result * Lipid panel (03/11/2024) [facility] LDL/HDL Ratio 3 0 - 4 Triglycerides 145 0 - 150 mg/dL Cholesterol 136 0 - 200 mg/dL HDL 51 >=40 mg/dL LDL Cholesterol 56 0 - 100 mg/dL Blood Venous blood specimen / Unknown Historical Provider LAB BLOOD ORDERABLES Jaycee l Result * Urine Albumin Creatinine Ratio (12/02/2023) Pathologist [facility] Urine Albumin Creatinine Ratio abstracted Historical Provider HEALTH MAINTENANCE Final Result from Last 3 Months or Most Recently Relevant to Health Maintenance Insurance [employer] MEDICARE Advance Directives Documents on File Type Date Recorded Patient Skirt Trimmer Expl anation Health Care Decision (hx) 10/27/2023 AD EGAN DIRECTIVE Health Care Decision (hx) 10/27/2023 AD EGAN DIRECTIVE Health Care Decision (hx) 10/27/2023 AD EGAN DIRECTIVE Health Care Decision (hx) 10/27/2023 AD EGAN DIRECTIVE Health Care Decision (hx) 10/27/2023 AD EGAN DIRECTIVE Health Care Decision (hx) 10/27/2023 AD EAGN DIRECTIVE Care Teams Delinquent Account Clerk Relationship Specialty Start Date End Date Arcadio Jorgensen MD [address] [place] [id number] PCP - General 01/13/24
--- OUTSIDE RECORDS SUMMARY | 2024-12-26 13:38 | XMS_ITS | Encounter Summary ---
Author Organization [facility] Address [address] [place] [address] Phone Care Team Providers Care Software Writer Name Role Phone Arcadio Jorgensen MD Primary Care Provider [phone] Encounter Details Date Type Department Care Team (Late st Contact Info) Description 12/07/2023 Documentation Only [facility] [address] [place] [address] Seble Pringle [address] [place] [phone] Social History Tobacco Use Types Packs/Day Years Used Date Smoking Tobacco: Every Day Cigarettes 1.5 50 Alcohol Use Standard Drinks/Week Comments Never 0 (1 standard drink = 0.6 oz pur e alcohol) Sex and Gender Information Value Date Recorded Sex Assigned at Male 06/02/2023 1:15 PM EDT Legal Sex Male 2:58 PM EST Gender Identity Male 06/02/2023 1:15 PM EDT Sexual Orientation Berg 06/02/2023 1: 15 PM EDT documented as of this encounter Plan of Treatment Upcoming Encounters Date Type Department Care Team (Late st Contact Info) Description 02/13/2025 2:30 PM EDT Office Visit [facility] [address] [place] [address] Rogers Villarreal MD [address] [place] [address] [address] [place]i Hernán[place] [address] documented as of this encounter Visit Diagnoses Not on filedocumented in this encounter Care Teams Software Writer Relationship Specialty Start Date End Date Arcadio Jorgensen MD [address] [place] [id number] PCP - General Internal Medicine 03/10/24 documented as of this encounter
--- OUTSIDE RECORDS SUMMARY | 2024-12-26 13:38 | XMS_ITS | Encounter Summary ---
Author Organization [facility] Address [address] [place] [address] Phone Care Team Providers Care Tie Tamper Name Role Phone Arcadio Jorgensen MD Primary Care Provider [phone] Encounter Details Date Type Department Care Team (Late st Contact Info) Description 12/07/2023 Documentation Only [facility] [address] [place] [place] [address] Candace Thomason [address] [place] [phone] Social History Tobacco Use Types Packs/Day Years [...] Visit [facility] [address] [place] [place] [address] Rogers Villarreal MD [address] [facility] [address]i Hernández [place] [phone] documented as of this encounter Visit Diagnoses Not on filedocumented in this encounter Care Teams Tie Tamper Relationship Specialty Start Date End Date Arcadio Jorgensen MD [address] [place] [id number] PCP - General Internal Medicine 03/10/24 documented as of this encounter
--- OUTSIDE RECORDS SUMMARY | 2024-12-26 13:38 | XMS_ITS | Encounter Summary ---
Author Organization [facility] Address [address] [place] [address] Phone Care Team Providers Care Child Adolescent Care Name Role Phone Arcadio Jorgensen MD Primary Care Provider [phone] Encounter Details Date Type Department Care Team (Late st Contact Info) Description 12/03/2023 Documentation Only [facility] [address] [place] [address] Candace Thomason [address] [place] [phone] Social History Tobacco Use Types Packs/Day Years [...] Visit [facility] [address] [place] [address] Rogers Villarreal MD [address] [facility] [address] [place] [place]ández [place] [phone] documented as of this encounter Visit Diagnoses Not on filedocumented in this encounter Care Teams Child Adolescent Care Relationship Specialty Start Date End Date Arcadio Jorgensen MD [address] [place] [id number] PCP - General Internal Medicine 03/10/24 documented as of this encounter
--- OUTSIDE RECORDS SUMMARY | 2024-12-26 13:38 | XMS_ITS | Encounter Summary ---
Author Organization [facility] Address [address] [place] [address] Phone Care Team Providers Care Retail District Manager Name Role Phone Arcadio Jorgensen MD Primary Care Provider [phone] Encounter Details Date Type Department Care Team (Late st Contact Info) Description 12/03/2023 Documentation Only [facility] [address] [place] [address] Candace Thomason [address] [place] [phone] Social History Tobacco Use Types Packs/Day Years [...] Visit [facility] [address] [place] [address] Rogers Villarreal MD [address] [facility] [address] Hernández [place] [phone] documented as of this encounter Visit Diagnoses Not on filedocumented in this encounter Care Teams Retail District Manager Relationship Specialty Start Date End Date Arcadio Jorgensen MD [address] [place] [address] PCP - General Internal Medicine 03/10/24 documented as of this encounter
--- OUTSIDE RECORDS SUMMARY | 2024-12-26 13:38 | XMS_ITS ---
Author Organization [facility] Address [address], [place] [id number] Care Team Providers Care Streetsweeper Operator Name Role Phone LANDYKLARISSAJAVIER Primary Care Provider ALLERGIES No Known Allergies REASON FOR REFERRAL Reason Please send referral to Dr. Pride in [place] Diagnosis 1 Memory changes (R41. 3) Diagnosis 2 Cognitive changes (R 41.89) Referral Organization [facility] Referring Provider First Name JAVIER Referring Provider Last Name TAMPA Referring Provider Speciality Nurse Tomás benson Referred Organization [facility] Referred Address [address], [id number], Referred Provider Specialty Neurology General Notes SJ, ADDY 0 02/17/2024 10:20:31 AM >demographics, insurance info, referral, office note and imaging faxed to [facility] [phone] Referral Priority Routine Reason Please refer for aud iology, has no preference where Diagnosis 1 Hearing loss of righ t ear, unspecified hearing loss type (H91.91) Referral Organization [facility] Referring Provider First Name JAVIER Referring Provider Last Name TAMPA Referring Provider Speciality Nurse Prac titadonisr Referred Organization [facility] Referred Address [address], [id number], Referred Provider Specialty Audiologists General Notes PANDOLFI, ADDY 0 02/18/2024 02:37:39 PM >demographics, insurance info, referral and office note faxed to [facility] in [place] [phone] Referral Priority Routine REASON FOR VISIT CORTISONE INJ RT SHOULDER MEDICATIONS Medication SIG (Take, Route, Frequency, Duration) Notes Start Date End Date Status Medrol 4 MG as directed Orally daily for 6 days 09/09/2023 Not-Taking Breo Ellipta 200-25 MCG/ACT 1 puff Inhalation Once a day for 90 days 04/29/2023 Not-Taking Fish Oil fish oil *Pick strength-form from [employer] for eRX* 09/01/2022 Not-Taking Niacin 500 MG Oral niacin 500 mg tablet 09/01/2022 Not-Taking Ira Allergy 180 MG 1 tablet by mouth daily Oral Ira Allergy 180 mg tablet 09/01/2022 Not-Taking Azelastine HCl 137 MCG/SPRAY 1 puff in each nostril Nasally Twice a day for 30 days 04/06/2023 Not-Taking Levocetirizine Dihydrochloride 5 MG TAKE 1 TABLET BY MOUTH EVERY DAY IN THE EVENING for 30 Not-Taking Clopidogrel Bisulfate 75 MG 1 tablet Orally Once a day for 90 days Not-Taking Jsubeumi-Jpkwanzpd-ZB 3.5-51727-8 4 drops into affected ear Otic Three times a day for 10 days 01/19/2024 Not-Taking Fluticasone Propionate 50 MCG/ACT 1 spray in each nostril Nasally Once a day for 30 days 04/01/2023 Not-Taking Ondansetron HCl 8 MG TAKE 1 TABLET BY MOUTH EVERY DAY NEEDED for 30 Active Albuterol Sulfate (2.5 MG/3ML) 0.083% 3 mL as needed Inhalation every 6 hrs for 90 days Active Albuterol Sulfate HFA 108 (90 Base) MCG/ACT INHALE 2 PUFFS BY MOUTH EVERY 4-6 HOURS NEEDED every 4 hrs for 90 days Active clonazePAM 1 MG TAKE 1 TABLET BY MOUTH TWICE DAILY NEEDED FOR ANXIETY Orally twice a day for 90 days 01/19/2024 Active Senna S 8.6-50 MG 2 TABS Orally Twice a day Not-Taking Pantoprazole Sodium 40 MG 1 tablet by mouth daily Orally Once a day for 90 days pantoprazole 40 mg tablet,delayed release 09/01/2022 Active NovoLIN 70/30 (70-30) 100 UNIT/ML Subcutaneous NovoLIN 70/30 U-100 Insulin 100 unit/mL subcutaneous suspension 09/01/2022 Active ProAir HFA 108 (90 Base) MCG/ACT take 2 puffs every 4-6 hrs as needed for cough Inhalation albuterol sulfate HFA 90 mcg/actuation aerosol inhaler *Reorder from [employer] for eRx and Interaction Alerts* 08/29/2022 Active Lisinopril 20 MG TAKE 1 TABLET BY MOUTH DAILY for 90 Active cloNIDine HCl 0.2 MG TAKE 1 TABLET BY MOUTH THREE TIMES DAILY for 90 Active Full Kit Nebulizer Set - for use with albuterol solution for COPD exacerbation every 4 hrs as needed for 30 days 02/09/2024 Active Metoprolol Succinate ER 25 MG 1 tablet Orally Once a day Active diphenhydrAMINE HCl 25 MG 1 capsule at bedtime as needed Orally Once a day Active Aspirin 81 MG 1 tab daily Oral aspirin 81 mg capsule *Pick strength-form from [employer] for eRX* 09/01/2022 Active SOCIAL HISTORY Tobacco Use: Social History Observation Description Date Details (start date - stop date) Current Smoker NA - NA Sex Assigned At : Social History Observation Description Sex Assigned At Unknown Tobacco Use/Smoking Question Answer Notes Tobacco use: current smoker Additional Findings: Tobacco User Moderate cigar ette smoker (10-19 cigs/day) Section Notes: Lives [place] with [facility]. PROBLEMS Problem Type ICD Code Onset Dates Problem Status W/U Status Risk SNOMED Code Notes Problem Memory changes (R41.3) Active confirmed Amnesia (26853196) VITAL SIGNS Blood pressure systolic 102 mm Hg 02/09/20 24 Blood pressure diastolic 58 mm Hg 024 Heart Rate 77 /min 02/09/2024 Height 67 in 02/09/2024 Weight 169.2 lbs 02/09/2024 BMI 26.5 kg/m2 02/09/2024 Oximetry 98 % 02/09/2024 Height-cm 170.18 cm 02/09/2024 Weight-kg 76.75 kg 02/09/2024 Encounters Encounter Location Date Provider Diagnosis [address] [id number] 02/09/2024 JAVIER ROBERTO Chronic obstructive pulmonary disease, unspecified J44.9 ; Acute pain of right shoulder M25.511 ; Memory changes R41.3 ; Cognitive changes R41.89 and Hearing loss of right ear, unspecified hearing loss type H91.91 ASSESSMENTS Encounter Date Diagnosis Assessment Notes Treatment Notes Treatment Clinical Notes Section Notes 02/09/2024 Chronic obstructive pulmonary disease, unspecified (ICD-10 - J44.9) 02/09/2024 Acute pain of right shoulder (ICD-10 - M25.511) Lot # _ Dose: _ 2% Lidocaine _ mL _ Steroid 40mg/mL Triamcinolone acetonide Exp _ Procedure: The area was prepped in the usual sterile manner. The needle was inserted into the affected area and the steroid was injected. There were no complications during this procedure. Followup: The patient tolerated the procedure well without complications. Standard post-procedure care is explained and return precautions are given. 02/09/2024 Memory changes (ICD-10 - R41.3) 02/09/2024 Cognitive changes (ICD-10 - R41.89) 02/09/2024 Hearing loss of right ear, unspecified hearing loss type (ICD-10 - H91.91) PLAN OF TREATMENT Medication Medication Name Sig Start Date Stop Date Notes Full Kit Nebulizer Set - for use with al buterol solution for COPD exacerbation every 4 hrs as needed for 30 days 02/09/2024 Treatment Notes Assessment Notes Acute pain of right shoulder Lot # _ Dose: _ 2% Lidocaine _ mL _ Steroid 40mg/mL Triamcinolone acetonide Exp _ Procedure: The area was prepped in the usual sterile manner. The needle was inserted into the affected area and the steroid was injected. There were no complications during this procedure. Followup: The patient tolerated the procedure well without complications. Standard post-procedure care is explained and return precautions are given. Referrals Referral Date Details Please send referral to Dr. Pride in [place] , [address] [place] [address], [phone], @[facility], Please refer for aud iology, has no preference where , [address] [place] [address], [phone], @[facility], Next Appt Details Follow Up: 2 Weeks, Reason: f/u shoulder pain Progress Notes * ERIK KOLBDOB:[birth year] (68 yo M)Acc No.[id number]:02/09/2024 Patient:??ERIK KOLB Provider:??Javier Roberto DNP :1955?Age:68 Y?Sex:Shukri le Date:02/09/2024 Phone: Address:[address], [place] Subjective: * Chief Complaints: * ?CORTISONE INJ RT SHOUL MARCK * HPI: ?Patient Care Team:?Highway Administrative Engineer:??Dr. Crane.?Barista:??Unsure of name - [facility].?Neurologist:??Dr. Altamirano.? Pig Breeder: Dr. Almeida. ?Visit info:? Erik presents in the office for a cortisone injection. Patient states there is a confilct with what the cariologist and finisher screwdown with regards to his BP and water intake. Hearing is not improving. Would like a referral to ENT. Patient has an appointment with Neurologist in July. Worried about his memory loss. Would like to talk about finding another that maybe will see him earlier. * ROS:?all systems reviewed and are non-contributory unless specified in the HPI. * Medical History:?? * Surgical History:??Endoscopi c valve repair - [facility] 2010Rt. Inguinal hernia repair 2013 * Hospitalization/Major Diagno stic Procedure:?? * Family History:??Father: dec eased 65 yrs, Rectal CA.??Mother: 88 yrs, Heart attack, Lung CA, Heart disease.??Paternal Grandfather: , Lung CA.??Maternal Grandmother: 74 yrs, Asthma , COPD , Embolism.??Brother: alive, Heart attack.?? * Social History:?Tobacco Use:?Tobacco Use/Smoking?Tobacco use:??current smoker ?Additional Findings: Tobacco User??Moderate cigarette smoker (10-19 cigs/day) ?Migrated Social History:?Migrated Social History: Smoking Status:Current every day smoker, [SNOMED-CT:[id number]], 1.5 packs a day 50 years. ?Drugs/Alcohol:?Do you drink alcohol?: Yes - Occasional Bloody Marily. ?Lives in [place] with partner Abelino. * Medications:??TakingMetoprol ol Succinate ER 25 MG Tablet Extended Release 24 Hour 1 tablet Orally Once a day diphenhydrAMINE HCl 25 MG Capsule 1 capsule at bedtime as needed Orally Once a day Aspirin 81 MG Capsule 1 tab daily Oral , Notes to Pharmacist: aspirin 81 mg capsule *Pick strength-form from [employer] for eRX*NovoLIN 70/30 (70-30) 100 UNIT/ML Suspension Subcutaneous , Notes to Pharmacist: NovoLIN 70/30 U-100 Insulin 100 unit/mL subcutaneous suspensionProAir HFA 108 (90 Base) MCG/ACT Aerosol Solution take 2 puffs every 4-6 hrs as needed for cough Inhalation , Notes to Pharmacist: albuterol sulfate HFA 90 mcg/actuation aerosol inhaler *Reorder from [employer] for eRx and Interaction Alerts*Lisinopril 20 MG Tablet TAKE 1 TABLET BY MOUTH DAILY cloNIDine HCl 0.2 MG Tablet TAKE 1 TABLET BY MOUTH THREE TIMES DAILY Pantoprazole Sodium 40 MG Tablet Delayed Release 1 tablet by mouth daily Orally Once a day , Notes to Pharmacist: pantoprazole 40 mg tablet,delayed releaseOndansetron HCl 8 MG Tablet TAKE 1 TABLET BY MOUTH EVERY DAY NEEDED Albuterol Sulfate (2.5 MG/3ML) 0.083% Nebulization Solution 3 mL as needed Inhalation every 6 hrs Albuterol Sulfate HFA 108 (90 Base) MCG/ACT Aerosol Solution INHALE 2 PUFFS BY MOUTH EVERY 4-6 HOURS NEEDED every 4 hrs clonazePAM 1 MG Tablet TAKE 1 TABLET BY MOUTH TWICE DAILY NEEDED FOR ANXIETY Orally twice a day Taking Metoprolol Succinate ER 25 MG Tablet Extended Release 24 Hour 1 tablet Orally Once a day Taking diphenhydrAMINE HCl 25 MG Capsule 1 capsule at bedtime as needed Orally Once a day Taking Aspirin 81 MG Capsule 1 tab daily Oral , Notes to Pharmacist: aspirin 81 mg capsule *Pick strength- form from [employer] for eRX*Taking NovoLIN 70/30 (70-30) 100 UNIT/ML Suspension Subcutaneous , Notes to Pharmacist: NovoLIN 70/30 U-100 Insulin 100 unit/mL subcutaneous suspensionTaking ProAir HFA 108 (90 Base) MCG/ACT Aerosol Solution take 2 puffs every 4-6 hrs as needed for cough Inhalation , Notes to Pharmacist: albuterol sulfate HFA 90 mcg/actuation aerosol inhaler *Reorder from [employer] for eRx and Interaction Alerts*Taking Lisinopril 20 MG Tablet TAKE 1 TABLET BY MOUTH DAILY Taking cloNIDine HCl 0.2 MG Tablet TAKE 1 TABLET BY MOUTH THREE TIMES DAILY Taking Pantoprazole Sodium 40 MG Tablet Delayed Release 1 tablet by mouth daily Orally Once a day , Notes to Pharmacist: pantoprazole 40 mg tablet,delayed releaseTaking Ondansetron HCl 8 MG Tablet TAKE 1 TABLET BY MOUTH EVERY DAY NEEDED Taking Albuterol Sulfate (2.5 MG/3ML) 0.083% Nebulization Solution 3 mL as needed Inhalation every 6 hrs Taking Albuterol Sulfate HFA 108 (90 Base) MCG/ACT Aerosol Solution INHALE 2 PUFFS BY MOUTH EVERY 4-6 HOURS NEEDED every 4 hrs Taking clonazePAM 1 MG Tablet TAKE 1 TABLET BY MOUTH TWICE DAILY NEEDED FOR ANXIETY Orally twice a day Not-TakingSenna S 8.6-50 MG Tablet 2 TABS Orally Twice a day X 1 MONTH, MAY CONTINUE WITH PLANE SENNA IF NORMAL bmSLevocetirizine Dihydrochloride 5 MG Tablet TAKE 1 TABLET BY MOUTH EVERY DAY IN THE EVENING Clopidogrel Bisulfate 75 MG Tablet 1 tablet Orally Once a day Mhgzzvet-Sjboxopae-UZ 3.5-66567-7 Suspension 4 drops into affected ear Otic Three times a day Fluticasone Propionate 50 MCG/ACT Suspension 1 spray in each nostril Nasally Once a day Azelastine HCl 137 MCG/SPRAY Solution 1 puff in each nostril Nasally Twice a day Medrol 4 MG Tablet Therapy Pack as directed Orally daily take as packaged directedBreo Ellipta 200-25 MCG/ACT Aerosol Powder Breath Activated 1 puff Inhalation Once a day Fish Oil , Notes to Pharmacist: fish oil *Pick strength-form from [employer] for eRX*Niacin 500 MG Tablet Oral , Notes to Pharmacist: niacin 500 mg tabletAllegra Allergy 180 MG Tablet 1 tablet by mouth daily Oral , Notes to Pharmacist: Ira Allergy 180 mg tabletMedication List reviewed and reconciled with the patientNot-Taking Senna S 8.6-50 MG Tablet 2 TABS Orally Twice a day X 1 MONTH, MAY CONTINUE WITH PLANE SENNA IF NORMAL bmSNot-Taking Levocetirizine Dihydrochloride 5 MG Tablet TAKE 1 TABLET BY MOUTH EVERY DAY IN THE EVENING Not-Taking Clopidogrel Bisulfate 75 MG Tablet 1 tablet Orally Once a day Not- Taking Qxrzfkby-Sftadrtlh-NF 3.5-24908-3 Suspension 4 drops into affected ear Otic Three times a day Not-Taking Fluticasone Propionate 50 MCG/ACT Suspension 1 spray in each nostril Nasally Once a day Not-Taking Azelastine HCl 137 MCG/SPRAY Solution 1 puff in each nostril Nasally Twice a day Not-Taking Medrol 4 MG Tablet Therapy Pack as directed Orally daily take as packaged directedNot-Taking Breo Ellipta 200-25 MCG/ACT Aerosol Powder Breath Activated 1 puff Inhalation Once a day Not-Taking Fish Oil , Notes to Pharmacist: fish oil *Pick strength-form from [employer] for eRX*Not- Taking Niacin 500 MG Tablet Oral , Notes to Pharmacist: niacin 500 mg tabletNot-Taking Ira Allergy 180 MG Tablet 1 tablet by mouth daily Oral , Notes to Pharmacist: Ira Allergy 180 mg tabletMedication List reviewed and reconciled with the patient * Allergies:??N.K.D.A.no[Aller gies Verified] Objective: * Vitals:??BP:102/58mm Hg, HR: 77/min, Oxygen sat %:98%, Wt:169.2lbs, Wt-k.75 kg, Ht: 67 in, Ht-cm: 170.18 cm, BMI:26.5Index, Body Surface Area: 1.9. * Physical Examination:?GEN: NAD ?NECK: supple, NT, FROM ?RESP: unlabored breathing, no use of accessory of muscles of respiration ?DERM: skin warm and dry ?EXT: no cyanosis/clubbing/edemam limited ROM to lateral raise of RIGHT UE, tenderness to AC ?NEURO: AO x 3 ?PSYCH: judgment/insight intact, NL mood/affect. Assessment: * Assessment: 1.??Acute pain of right shou lder - M25.511 (Primary)??2.??Chronic obstructive pulmonary disease, unspecified - J44.9??3.??Memory changes - R41.3??4.??Cognitive changes - R41.89??5.??Hearing loss of right ear, unspecified hearing loss type - H91.91?? Plan: * Treatment: 2.??Chronic obstructive pulm onary disease, unspecified?? Start Full Kit Nebulizer Set Miscellaneous, -, for use with albuterol solution for COPD exacerbation every 4 hrs as needed As needed, 30 days, 1, Refills 0.? 3.??Memory changes? Referral To:Neurology ?Reason:Please send referral to Dr. Pride in [place] 4.??Cognitive changes? Referral To:Neurology ?Reason:Please send referral to Dr. Pride in [place] 5.??Hearing loss of right ea r, unspecified hearing loss type? Referral To:Audiologists ?Reason:Please refer for audiology, has no preference where * Procedure Codes:?? DRAI N/INJECT, JOINT/[id number] INJ TRIAMCINOLONE ACETONIDE 10 MG 40 mg, Units: 4.00 * Follow Up:??2 Weeks (Reason: f/u shoulder pain) * Billing Information: * Visit Code:?? 79078 Office Visit, Est Pt., Level 4. * Procedure Codes:?? DRAIN/INJECT, JOINT/BURSA. [id number] INJ TRIAMCINOLONE ACETONIDE 10 MG, 40 mg. Units: 4.00. * Sign off status: Completed true * Provider:??Javier Roberto DNP Date:??0 02/09/2024 History and Physical Notes * HPI (History of Present Illness) Category Sub-Category Detail Notes Category Not es Patient Care Team Highway Administrative Engineer: Dr. Royce Trejo gist: Dr. Almeida Barista: Unsure of name - [facility] Neurologist: Dr. Altamirano Visit info Erik present s in the office for a cortisone injection. Patient states there is a confilct with what the cariologist and finisher screwdown with regards to his BP and water intake. Hearing is not improving. Would like a referral to ENT. Patient has an appointment with Neurologist in July. Worried about his memory loss. Would like to talk about finding another that maybe will see him earlier. Physical Examination Category Sub-Category Detail Notes Section Note s GEN: NAD NECK: supple, NT, FROM RESP: unlabored breathing, no use of accessory of muscles of respiration DERM: skin warm and dry EXT: no cyanosis/clubbing/edemam limited ROM to lateral raise of RIGHT UE, tenderness to AC NEURO: AO x 3 PSYCH: judgment/insight intact, NL mood/affect Consultation Request Notes Referral Date Referring Provider Referred Provider Not es 02/09/2024 JAVIER ROBERTO , Please send referral to Dr. Pride in [place] 02/09/2024 JAVIER ROBERTO , Please refe r for audiology, has no preference where
--- OUTSIDE RECORDS SUMMARY | 2024-12-26 13:38 | XMS_ITS | Data Portability ---
Author Organization [facility] [employer], [employer] Address [address] [place] [address] Care Team Providers Care Sign Out Clerk Name Role Phone GEORGINA DUKES Referring Provider JAVIER BILL Referring Provider ERNST ERICKSON Primary Care Provider Assessment Encounter Date Assessment Date Assessment LastModified by Organization Details LastModified Time 05/23/2024 05/23/2024 IMPRESSION: Mild cognitive impairment, with episodes of mentation abnormality and/or hallucination including: ? 9288-6419: three extended episodes lasting 3 days up to ~2 weeks where he was having hallucinations and memory problems, each with ICU stay; ? 2020: Stopping at greenlight, going when the light turned red, not driving since; ? June and July 2023 hospitalizations each with behavioral dysregulation; ? 2020 onset of currently ~6 times per year episodes of complete retrograde amnesia for seemingly salient events; ? 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 Occasional mistakes with medications; ? Mild abnormality May 23, 2024 in executive function and visual-spatial domains of example cognitive testing The REM behavior sleep disorder together with hallucinations occurring in stressful circumstances? June 2023 hospitalization, suggest a prodrome of Lewy body disease. Encephalitis may have caused static brain damage as someone mentioned this was the diagnosis for his three extended episodes with ICU stay in [place] in 7943-2324. I suggest we get brain MRI and appropriate blood work to start our investigations going forward. I suggest we get information about his [place] ICU stays from discharge summary and neurology notes to understand diagnoses that may have occurred at that time. They are on board with this workup. Meanwhile, I suggest medication organizer big enough to contain a week of his medications that are sometimes three times a day. I suggest that his partner be present when he feels the organizer and when he takes his medications. At follow-up, DaTscan might be considered. Medications per patient: Lisinopril 20 mg, clonidine 0.2 mg 3 times daily, rosuvastatin 40 mg daily, clonazepam 1 mg twice daily, pantoprazole 40 mg daily, aspirin 81 mg daily, Novolin insulin, albuterol inhaler, neomycin in the ear, probiotic Gummies, topical cream. >>>>>>>>>>>> PLAN Koko Mathis May 23, 2024 Brain MRI without contrast, including SWI sequences, for patient history of hospitalizations in [place] in 2019? 2027 with possible encephalitis then. Laboratory assays for abnormalities that could affect memory. Records from [place] as detailed above. Follow-up 3 months. susana Not available 05/23/2024 16:43:37 06/29/2024 06/29/2024 IMPRESSION: Mild cognitive impairment, with episodes of mentation abnormality and/or hallucination including: ? 0865-9543: three extended episodes lasting 3 days up to ~2 weeks where he was having hallucinations and memory problems, each with ICU stay; ? 2020: Stopping at greenlight, going when the light turned red, not driving since; ? June and July 2023 hospitalizations each with behavioral dysregulation; ? 2020 onset of currently ~6 times per year episodes of complete retrograde amnesia for seemingly salient events; ? 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 Occasional mistakes with medications; ? Mild abnormality May 23, 2024 in executive function and visual-spatial domains of example cognitive testing June 23, 2024 brain MRI? unrevealing; and June 15, 2024 blood work for abnormalities that associated with cognitive slowing? also unrevealing. >>>>>>>>>>>>Octobe r 2023 We discuss the results of June 23, 2024 brain MRI? unrevealing; and June 15, 2024 blood work for abnormalities that associated with cognitive slowing? also unrevealing. We discussed my review of data from 2019? I have received only imaging and emergency room reports. There is no detail on encephalopathy although one of the two emergency room notes refers to a report by the patient that he had had his hospitalization previously for encephalopathy. Imaging at that time included normal brain MRI. I recommend we move forward. Lewy body disease? very early prodrome symptomatology? is still a plausible explanation of his widely spaced alteration in mental status resulting in forgetfulness; his REM behavior sleep disorder; his hallucination under the stress of bladder/urethra issues requiring hospitalization. I ask if he wishes DaTscan which may provide documentation of dopaminergic depletion which strongly implies either the existence of or at the future emergence of eye disease of dopamine depletion, such as Lewy body disease. There are four other possible diseases where the imaging would be identical: Parkinson's disease? the most common; and three rare diseases: Multisystems atrophy, supranuclear palsy and corticobasal degeneration. Given his symptoms, if DaTscan is positive Lewy body disease would be much more likely to emerge fully in the future. It catches it could be many years before such emergence occurs. He understands the benefits and limits of moving forward with DaTscan as I just described. He would like to move forward. >>>>>>>>>>>>Octobe r 2023 The REM behavior sleep disorder together with hallucinations occurring in stressful circumstances? June 2023 hospitalization, suggest a prodrome of Lewy body disease. Encephalitis may have caused static brain damage as someone mentioned this was the diagnosis for his three extended episodes with ICU stay in [place] in 8975-5013. I suggest we get brain MRI and appropriate blood work to start our investigations going forward. I suggest we get information about his [place] ICU stays from discharge summary and neurology notes to understand diagnoses that may have occurred at that time. They are on board with this workup. Meanwhile, I suggest medication organizer big enough to contain a week of his medications that are sometimes three times a day. I suggest that his partner be present when he feels the organizer and when he takes his medications. At follow-up, DaTscan might be considered. Medications per patient: Lisinopril 20 mg, clonidine 0.2 mg 3 times daily, rosuvastatin 40 mg daily, clonazepam 1 mg twice daily, pantoprazole 40 mg daily, aspirin 81 mg daily, Novolin insulin, albuterol inhaler, neomycin in the ear, probiotic Gummies, topical cream. >>>>>>>>>>>> PLAN Koko Mathis June 29, 2024 DaTscan with Lewy body disease concern, with widely spaced episodes of abnormal mental state, REM behavior sleep disorder, and hallucination during bladder related hospitalization Follow-up after mrossen Not available 06/29/2024 11:14:07 08/17/2024 08/17/2024 IMPRESSION: Mild cognitive impairment, with episodes of mentation abnormality and/or hallucination including: ? 4858-7936: three extended episodes lasting 3 days up to ~2 weeks where he was having hallucinations and memory problems, each with ICU stay; ? 2020: Stopping at greenlight, going when the light turned red, not driving since; ? June and July 2023 hospitalizations each with behavioral dysregulation; ? 2019 onset of currently ~6 times per year episodes of complete retrograde amnesia for seemingly salient events; ? 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 Occasional mistakes with medications; ? Mild abnormality May 23, 2024 in executive function and visual-spatial domains of example cognitive testing June 23, 2024 brain MRI? unrevealing; and June 15, 2024 blood work for abnormalities that associated with cognitive slowing? also unrevealing. --DaTscan July 28, 2024: Normal per [facility] radiology >>>>>>>>>>>>Novemb 2023 Medically normal DaTscan and previously normal brain MRI, I have no good explanation for his episodic changes in mental state. My pretest concern for Lewy body disease was not negligible, given history of REM behavior disorder, and given history of hospitalizations with behavioral dysregulation including hallucination. REM behavior disorder is considered fairly specific as a prodrome for syndrome of dopaminergic depletion for which DaTscan is the ideal brain imaging test. DaTscan is highly sensitive. If REM behavior sleep disorder symptoms reported by the patient's partner relate to a dopaminergic deficit, then presumably DaTscan would see this. Given his situation, hypothesized that this patient's presentation involves observation of REM behavior sleep disorder symptomatology that does not relate to dopaminergic depletion. More generally, I have no neurological explanation of his episodic change in mental state dating back to 2018, with episodes lasting up to 2 weeks. In this context, I wonder if there is a primary psychiatric diagnosis. He has psychotherapist who has arranged appointment with psychiatrist in order for him to get clonazepam for anxiety. I asked him to ask the psychiatrist about this separate issue: Episodic change in mental state, with history of hallucination, with no brain level evidence of Lewy body disease on DaTscan. He will try to remember to do this. >>>>>>>>>>>>Octobe r 22023 We discuss the results of June 23, 2024 brain MRI? unrevealing; and June 15, 2024 blood work for abnormalities that associated with cognitive slowing? also unrevealing. We discussed my review of data from 2019? I have received only imaging and emergency room reports. There is no detail on encephalopathy although one of the two emergency room notes refers to a report by the patient that he had had his hospitalization previously for encephalopathy. Imaging at that time included normal brain MRI. I recommend we move forward. Lewy body disease? very early prodrome symptomatology? is still a plausible explanation of his widely spaced alteration in mental status resulting in forgetfulness; his REM behavior sleep disorder; his hallucination under the stress of bladder/urethra issues requiring hospitalization. I ask if he wishes DaTscan which may provide documentation of dopaminergic depletion which strongly implies either the existence of or at the future emergence of eye disease of dopamine depletion, such as Lewy body disease. There are four other possible diseases where the imaging would be identical: Parkinson's disease? the most common; and three rare diseases: Multisystems atrophy, supranuclear palsy and corticobasal degeneration. Given his symptoms, if DaTscan is positive Lewy body disease would be much more likely to emerge fully in the future. It catches it could be many years before such emergence occurs. He understands the benefits and limits of moving forward with DaTscan as I just described. He would like to move forward. >>>>>>>>>>>>Octobe r 22023 The REM behavior sleep disorder together with hallucinations occurring in stressful circumstances? June 2023 hospitalization, suggest a prodrome of Lewy body disease. Encephalitis may have caused static brain damage as someone mentioned this was the diagnosis for his three extended episodes with ICU stay in [place] in 8911-3370. I suggest we get brain MRI and appropriate blood work to start our investigations going forward. I suggest we get information about his [place] ICU stays from discharge summary and neurology notes to understand diagnoses that may have occurred at that time. They are on board with this workup. Meanwhile, I suggest medication organizer big enough to contain a week of his medications that are sometimes three times a day. I suggest that his partner be present when he feels the organizer and when he takes his medications. At follow-up, DaTscan might be considered. Medications per patient: Lisinopril 20 mg, clonidine 0.2 mg 3 times daily, rosuvastatin 40 mg daily, clonazepam 1 mg twice daily, pantoprazole 40 mg daily, aspirin 81 mg daily, Novolin insulin, albuterol inhaler, neomycin in the ear, probiotic Gummies, topical cream. >>>>>>>>>>>> PLAN Koko Mathis August 17, 2024 As I have no further diagnostic or management directions to pursue, we agree that he will follow-up as needed. susana Not available 08/17/2024 11:40:58 Plan of Treatment Reminders Order Date Submit Date Provider Last Modified By Organization Details Last Modified Time Details Appointments None recorded. Lab vitamin B12, serum 2023 024 [facility], Critical access hospital[address] [place], [address], 4 18:18:24 folate, serum 2023 024 [facility], [address] [place], [address], 4 18:18:23 mma (methylmalo micha acid), serum - [facility] code [id number] 2023 024 [facility], [address] [place], [address], 4 18:18:21 homocystein e, serum or plasma 2023 024 [facility], Critical access hospital[address] [place], [address], 4 18:18:22 methylmalon ate, QN, serum or plasma 2023 024 [email or web address] 1 [facility] (Centralized Electronic Ordering - All Locations), Patient Can Go To The Location Of Their Choice, [id number] 4 13:02:48 methylmalon ate, QN, serum or plasma 2023 024 [email or web address] 1 [facility] (Outpatient), [address] [place], [address], 4 13:02:49 mma (methylmalo micha acid), serum 2023 [email or web address] 1 [facility], [address] [place] [address], [address], 4 13:02:49 TSH, serum or plasma - E07.9 2023 024 [facility], Critical access hospital[address] [place], [address], 4 18:18:24 T4, free, serum - E07.9 2023 024 [facility], Critical access hospital[address] [place], [address], 4 18:18:23 vitamin D, 25-hydroxy, total, serum - E55.9 2023 024 ANGELICA [employer] [facility], [address] [place], [address], 4 18:18:25 RPR (rapid plasma reagin), serum - A53.9 2023 024 [facility], Critical access hospital[address] [place], [address], 4 18:18:25 treponema pallidum screen, serum, reflex confirmatio n 2023 024 [email or web address] 1 [facility] (Outpatient), [address] [place], [address], 4 13:02:49 Referral None recorded. Procedures None recorded. Surgeries None recorded. Imaging SPECT, brain - DaTscan with Lewy body disease concern, with widely spaced episodes of abnormal mental state, REM behavior sleep disorder, and hallucinati on during bladder related hospitaliza tion 2023 024 [email or web address] 1 [facility], [address], [place], [address], 15:59:39 Medication Orders None recorded. Patient TargetsNo targets recorded. Patient Instructions Encounter Date Encounter Id Patient Instructions Last Modified By Organization Details Last Modified Time 05/23/2024 [id number] Discussion acros s issues of diagnoses and management and same day associated chart review and management greater than 50% greater than 90 minutes [email or web address] Not available 05/23/2024 16:48:14 06/29/2024 [id number] Discussion acros s issues of diagnoses and management and same day associated chart review and management greater than 50% greater than 40 minutes mrossen Not available 06/29/2024 11:14:24 08/17/2024 [id number] Discussion acros s issues of diagnoses and management and same day associated chart review and management greater than 50% greater than 30 minutes mrossen Not available 08/17/2024 11:41:22 Reason for Referral None Reported. Results Created Date Observation Date Name Description Value Unit Range Abnormal Flag Note LastModifiedBy Organization Detail LastModifiedTime 06/15/20 24 06/17/2024 METHY LMALO MICHA ACID methylmaloni c acid 213 nmol/ L 69-390 Serum methy lmalo micha acid (MMA) level s are used to diagn ose and monit or sever al rare inbor n error s of metab olism , inclu ding methy lmalo micha acidu manuel. The enzym atic conve rsion of MMA to succi micha acid requi res vitam in B12 (shamir osyl- cobal carrington) as a cofac tor. Serum MMA level s are also used for asses sing funct ional vitam in B12 defic iency . Vitam in B12 is essen tial for neuro devel opmen t, parti cular ly early in pregn ghazala. Undia gnose d mater nal vitam in B12 defic iency may be assoc iated with adver se /neon atal outco mes, such as neura l tube defec ts and intra uteri ne growt h restr ictio n. [facility] Multi -Moda l Decom posit ion (MMD) estuardo sis to estab amy first and secon d trime ster- speci fic MMA refer ence inter vals in pregn ghazala, as given below : MMA, First trime ster (<13 wks gesta tion) : 58-16 7 nmol/ L MMA, Secon d trime ster (13-2 3 wks gesta tion) : 63-24 1 nmol/ L This test was devel oped and its estuardo tical perfo rmanc e joesph cteri stics have been deter mined by [facility]. It has not been clear ed or appro sara by the FDA. This assay has been valid ated pursu ant to the CLIA regul ation s and is used for clini yohana purpo ses. Not Available [facility] [address], [address], 06/17/2024 18:18:21 06/15/20 24 06/17/2024 HOMOC YSTEI NE homocysteine 19.1 umol/ L <11.4 high Homoc ystei ne is incre ased by funct ional defic iency of folat e or vitam in B12. Testi ng for methy lmalo micha acid diffe renti ates betwe en these defic ienci es. Other cause s of incre ased homoc ystei ne inclu de renal failu re, folat e antag onist s such as metho trexa te and pheny toin, and expos ure to nitro us oxide . Mg madera J, et al., [place] Inter n Med. 1999; 131(5 ):331 -9. Not Available [facility] [address], [address], 06/17/2024 18:18:22 06/15/20 24 06/17/2024 FOLAT E, SERUM folate, serum 17.1 NG/mL normal Refer ence Range Low: <3.4 Borde rline : 3.4-5 .4 Korin l: >5.4 Not Available [employer] [facility] [address], [address], 06/17/2024 18:18:23 06/15/20 24 06/17/2024 T4, FREE T4, free 1.0 NG/dL 0.8-1. 8 normal Not Available [facility] [address], [address], 06/17/2024 18:18:23 06/15/20 24 06/17/2024 TSH TSH 1.13 mIU/L 0.40-4 .50 normal Not Available [facility] [address], [address], 06/17/2024 18:18:23 06/15/20 24 06/17/2024 VITAM IN B12 vitamin B12 231 pg/mL 200-11 00 normal Pleas e Note: Altho ugh the refer ence range for vitam in B12 is 200-1 100 pg/mL , it has been repor julian that betwe en 5 and 10% of patie nts with value s betwe en 200 and 400 pg/mL may exper ience neuro psych iatri c and hemat ologi c abnor malit ies due to occul t B12 defic iency ; less than 1% of patie nts with value s above 400 pg/mL will have sympt oms. Not Available [employer] [facility] [address], [address], 06/17/2024 18:18:24 06/15/20 24 06/17/2024 VITAM IN D,25- OH,TO OSCAR,I A vitamin D,25-oh,tota l,ia 35 NG/mL 30-100 normal Vitam in D Statu s 25-OH Vitam in D: Defic iency : <20 ng/mL Insuf ficie ncy: 20 - 29 ng/mL Optim al: > or = 30 ng/mL For 25-OH Vitam in D testi ng on patie nts on D2-cross pplem entat ion and patie nts for whom quant itati on of D2 and D3 fract ions is requi red, the [facility] eD(TM ) 25-OH VIT D, (D2,D 3), LC/MS /MS is recom danisha d: order code [id number] (abram ents >2yrs ). See Note 1 Note 1 For addit ional infor chava stockton refer to http: //[facility] jacek camacho.[email or web address] stDia gnost ics.c om/fa q/FAQ 199 (This link is being provi ded for infor anyi horvath/ educa margarita schumacher purpo ses only. ) Not Available [facility] [address], [address], 06/17/2024 18:18:24 06/15/20 24 06/17/2024 RPR (DX) W/REF L TITER AND T. PALLI DUM AB, IA RPR (DX) w/refl titer and confirmatory testing NON-RE ACTIVE non-re active normal No labor atory evide nce of syphi lis. If recen t expos ure is suspe cted, submi t a new sampl e in 2-4 weeks . Not Available [facility] [address], [place], [address], 06/17/2024 18:18:25 06/24/20 24 06/23/2024 MRI, brain + brain stem, w/o contr ast [facility] Access ion Number : [id number] Arti crespo Name: Ermelinda Garza Medica l Record Number : [id number] Date of : 1954 Date of Exam: 2023 Referr ing Physic anabela: Titi Pride [facility] Neurol [facility]gy [address] [facility] [address] [place] [address] Exam: MR Brain (C-) CPT 27359 Room Descri ption: [facility] 3.0T MRI of the brain withou t contra st. HISTOR Y: Cognit darline issues . Memory loss. Syncop e. Right tinnit us. COMPAR TRAVIS: CT of head on 024.. FINDIN GS: The ventri cles, cister ns and sulci appear mildly promin ent consis tent with mild genera lized age relate d atroph y. No hydroc ephalu s. There is no acute intrac ranial hemorr leighton, tumor or infarc t. A few puncta te areas of hyperi ntense T2 CFS signal s are seen in the white matter s which are nonspe cific and may be due to chroni c small vessel ischem ic diseas e. Please correl ate clinic ally. There are normal flow-v oids within major intrac ranial vessel s. The parana tone sinuse s are clear. . IMPRES ALFONZO: No acute intrac ranial pathol ogy. Electr onical ly Signed By: Pankaj Boo MD [email or web address] [facility] [address], [place], [address], 06/27/2024 11:29:22 06/24/20 24 06/23/2024 MRI, brain , w/o contr ast No observ ation record ed. [email or web address] [facility] ([facility] [address], [place], [address], 06/27/2024 11:29:22 06/30/20 24 06/23/2024 MRI, brain + brain stem, w/o contr ast [facility] Access ion Number : [id number] Arti crespo Name: Ermelinda Garza Medica l Record Number : [id number] Date of : 1954 Date of Exam: 2023 Referr ing Physic anabela: Titi Pride belinda Neurol ogy [address] [facility] [address] [place] [address] Exam: MR Brain (C-) CPT 24420 Room Descri ption: [facility] 3.0T MRI of the brain withou t contra st. HISTOR Y: Cognit darline issues . Memory loss. Syncop e. Right tinnit us. COMPAR TRAVIS: CT of head on 024.. FINDIN GS: The ventri cles, cister ns and sulci appear mildly promin ent consis tent with mild genera lized age relate d atroph y. No hydroc ephalu s. There is no acute intrac ranial hemorr leighton, tumor or infarc t. A few puncta te areas of hyperi ntense T2 CFS signal s are seen in the white matter s which are nonspe cific and may be due to chroni c small vessel ischem ic diseas e. Please correl ate clinic ally. There are normal flow-v oids within major intrac ranial vessel s. The parana tone sinuse s are clear. . IMPRES ALFONZO: No acute intrac ranial pathol ogy. Electr onical ly Signed By: Pankaj Boo MD [address] [facility] ([facility]) [address] [place], [address], 06/30/2024 09:22:59 07/28/20 24 07/28/2024 nm brain imagi ng rolly SPECT Brain PAT SPECT study. Histor y: Cognit darline issues . Concer n for Kamilah son's syndro me. Compar travis: None. Techni que: 6 mCi of I-123 Ioflup ane was inject ed intrav enousl y. After a four-h our delay, SPECT imagin g of the brain was perfor med. Findin gs: Symmet meryl activi ty is seen within the putame n and caudat e nuclei bilate rally. IMPRES ALFONZO: Normal PAT SPECT study. I have person ally review ed the images and I agree with this report . WSN: [id number] Orderi ng Physic anabela: Titi Pride Dictat ed By: Lilliana Ruggiero DO Dictvinay ed Date/T cheyanne: 3:02 pm Review ed By: Gurmeet Weiner MD Signed By: Gurmeet Weiner MD Signed Date/T cheyanne: 3:07 pm Transc ribed By: DANIELITO Transc ribed Date/T cheyanne: 2:56 pm Patien t Class: 101 [email or web address] [facility] ([facility]) [address] [place], [address], 08/01/2024 11:47:00 Result Notes None recorded. Procedures Surgical History Date Name Laterality Status Provider Name and Address Organization Details Recorded Time 08/17/2024 DATA REVIEW completed Dmitry Pride MD [address] [place] [address] [place], [address], [facility] 08/17/2024 11:13:49 06/29/2024 DATA REVIEW completed Dmitry Pride MD [address] [place] [address] [place], [address], [facility] 06/29/2024 11:06:02 Imaging Results Imaging Date Name Status LastModified by Organiz ation Details LastModified Time 06/23/2024 MRI, brain + brain stem, w/o contrast completed [address] [facility] [address] [place], [address], 06/27/2024 11:29:22 06/23/2024 MRI, brain, w/o contrast completed [address] [facility] [place], [address], 06/27/2024 11:29:22 06/23/2024 MRI, brain + brain stem, w/o contrast completed [address] [facility] [place], [address], 06/30/2024 09:22:59 07/28/2024 nm brain imaging rolly SPECT completed [address] ([facility]) [address] [place], [address], 08/01/2024 11:47:00 Procedure Notes None recorded. Medical Equipment None Reported. Allergies No known drug allergies Medications Name Sig Start Date Stop Date Status Note LastModified by Organization Details LastModified Time neomycin-arnoldo ymyxin-hydro binh 3.5 mg/mL-10,000 unit/mL-1 % ear solution INSTILL 4 TO 5 DROPS TWICE DAILY TO LEFT EAR active Not Available Not Available Not Available doxycycline hyclate 100 mg capsule TAKE 1 CAPSULE BY MOUTH TWICE DAILY FOR 7 DAYS active Not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
--- OUTSIDE RECORDS SUMMARY | 2024-12-26 13:38 | XMS_ITS | Encounter Summary ---
Author Organization [facility] Address [address] [place] [address] Phone Care Team Providers Care Office Service Coordinator Name Role Phone Arcadio Jorgensen MD Primary Care Provider [phone] Encounter Details Date Type Department Care Team (Late st Contact Info) Description 12/19/2022 Documentation Only [facility] [address] [place] [address] Rogers Villarreal MD [address] [place] [address] [address]. Koffi Hernández [place] [address] Social History Tobacco Use Types Packs/Day Years [...] Visit [facility] [address] [place] [address] Rogers Villarreal MD [address] [place] [address] Dr. Koffi Hernández [place] [address] documented as of this encounter Visit Diagnoses Not on filedocumented in this encounter Care Teams Office Service Coordinator Relationship Specialty Start Date End Date Arcadio Jorgensen MD [address] [place] [phone] PCP - General Internal Medicine 03/10/24 documented as of this encounter
--- OUTSIDE RECORDS SUMMARY | 2024-12-26 13:39 | XMS_ITS ---
Author Organization [facility] Address [address] [place] [phone] Care Team Providers Care Director Of Loss Prevention Name Role Phone JAVIER BILL Primary Care Provider [phone] REASON FOR VISIT RX for Power Nebulizer Encounters Encounter Location Date Provider Diagnosis [address] [id number] 02/11/2024 JAVIER BILL PLAN OF TREATMENT No Information Progress Notes * CORY KOLBDOB:[birth year] (68 yo M)Acc No.[id number]:02/11/2024 Patient:??CORY KOLB :1955?Age:68 Y?Sex:Shukri culver Phone: Address:[address] [place] [id number] * true * Date:??
--- OUTSIDE RECORDS SUMMARY | 2024-12-26 13:39 | XMS_ITS | Encounter Summary ---
Author Organization [facility] Address [address] [place] [address] Phone Care Team Providers Care E Learning Coordinator Name Role Phone Arcadio Jorgensen MD Primary Care Provider [phone] Encounter Details Date Type Department Care Team (Late st Contact Info) Description 10/16/2022 Documentation Only [facility] [address] [place] [address] Jennifer Roberto, [address] [address] Social History Tobacco Use Types Packs/Day Years Used Date Smoking Tobacco: Never Assessed Sex and Gender Information Value Date Recorded [...] Visit [facility] [address] [place] [address] Rogers Villarreal MD [address] [place] [address] Dr. Koffi Hernández [place] [phone] documented as of this encounter Visit Diagnoses Not on filedocumented in this encounter Care Teams E Learning Coordinator Relationship Specialty Start Date End Date Arcadio Jorgensen MD [address] [place] [address] PCP - General Internal Medicine 03/10/24 documented as of this encounter
--- OUTSIDE RECORDS SUMMARY | 2024-12-26 13:39 | XMS_ITS | Encounter Summary ---
Author Organization [facility] Address [address] [place] [address] Phone Care Team Providers Care Customs Inspector Name Role Phone Arcadio Jorgensen MD Primary Care Provider [phone] Encounter Details Date Type Department Care Team (Late st Contact Info) Description 12/14/2023 Documentation Only [facility] [address] [place] [address] Candace Thomason [address] [place] [phone] Social History Tobacco Use Types Packs/Day Years [...] Visit [facility] [address] [place] [address] Rogers Villarreal MD [address] [facility] [address]offi Hernández [place] [phone] documented as of this encounter Visit Diagnoses Not on filedocumented in this encounter Care Teams Customs Inspector Relationship Specialty Start Date End Date Arcadio Jorgensen MD [address] [place] [phone] PCP - General Internal Medicine 03/10/24 documented as of this encounter
--- OUTSIDE RECORDS SUMMARY | 2024-12-26 13:39 | XMS_ITS ---
Author Organization [facility] Address [address] [place] [phone] Care Team Providers Care Manager Branch Name Role Phone JAVIER ROBERTO Primary Care Provider ALLERGIES No Known Allergies REASON FOR VISIT F/U LABS MEDICATIONS Medication SIG (Take, Route, Frequency, Duration) Notes Start Date End Date Status Breo Ellipta 200-25 MCG/ACT 1 puff Inhalation Once a day for 90 days 04/29/2023 Not-Taking Medrol 4 MG as directed Orally daily for 6 days 09/09/2023 Not-Taking Ira Allergy 180 MG 1 tablet by mouth daily Oral Ira Allergy 180 mg tablet 09/01/2022 Not-Taking Niacin 500 MG Oral niacin 500 mg tablet 09/01/2022 Not-Taking Fish Oil fish oil *Pick strength-form from [employer] for eRX* 09/01/2022 Not-Taking Mggrmrpa-Giolifoee-DX 3.5-59789-0 4 drops into affected ear Otic Three times a day for 10 days 01/19/2024 Not-Taking Clopidogrel Bisulfate 75 MG 1 tablet Orally Once a day for 90 days Not-Taking Levocetirizine Dihydrochloride 5 MG TAKE 1 TABLET BY MOUTH EVERY DAY IN THE EVENING for 30 Not-Taking Azelastine HCl 137 MCG/SPRAY 1 puff in each nostril Nasally Twice a day for 30 days 04/06/2023 Not-Taking Fluticasone Propionate 50 MCG/ACT 1 spray in each nostril Nasally Once a day for 30 days 04/01/2023 Not-Taking Albuterol Sulfate (2.5 MG/3ML) 0.083% 3 mL as needed Inhalation every 6 hrs for 90 days Active Senna S 8.6-50 MG 2 TABS Orally Twice a day Not-Taking Full Kit Nebulizer Set - for use with albuterol solution for COPD exacerbation every 4 hrs as needed for 30 days 02/09/2024 Active clonazePAM 1 MG TAKE 1 TABLET BY MOUTH TWICE DAILY NEEDED FOR ANXIETY Orally twice a day for 90 days 01/19/2024 Active Albuterol Sulfate HFA 108 (90 Base) MCG/ACT INHALE 2 PUFFS BY MOUTH EVERY 4-6 HOURS NEEDED every 4 hrs for 90 days Active Lisinopril 20 MG TAKE 1 TABLET BY MOUTH DAILY for 90 Active ProAir HFA 108 (90 Base) MCG/ACT take 2 puffs every 4-6 hrs as needed for cough Inhalation albuterol sulfate HFA 90 mcg/actuation aerosol inhaler *Reorder from [employer] for eRx and Interaction Alerts* 08/29/2022 Active Ondansetron HCl 8 MG TAKE 1 TABLET BY MOUTH EVERY DAY NEEDED for 30 Active Pantoprazole Sodium 40 MG 1 tablet by mouth daily Orally Once a day for 90 days pantoprazole 40 mg tablet,delayed release 09/01/2022 Active cloNIDine HCl 0.2 MG TAKE 1 TABLET BY MOUTH THREE TIMES DAILY for 90 Active Repatha 140 MG/ML 1 mL Subcutaneous once every two weeks for 90 days 02/17/2024 4 Active Jardiance 25 MG 1 tablet Orally Once a day for 30 days 02/17/2024 4 Active Aspirin 81 MG 1 tab daily Oral aspirin 81 mg capsule *Pick strength-form from [employer] for eRX* 09/01/2022 Active Ozempic (0.25 or 0.5 MG/DOSE) 2 MG/3ML 0.05 mg Subcutaneous once per week for 30 days 02/17/2024 Active NovoLIN 70/30 (70-30) 100 UNIT/ML Subcutaneous NovoLIN 70/30 U-100 Insulin 100 unit/mL subcutaneous suspension 09/01/2022 Active diphenhydrAMINE HCl 25 MG 1 capsule at bedtime as needed Orally Once a day Active Metoprolol Succinate ER 25 MG 1 tablet Orally Once a day Active SOCIAL HISTORY Tobacco Use: Social History Observation Description Date Details (start date - stop date) Current Smoker NA - NA Sex Assigned At : Social History Observation Description Sex Assigned At Unknown Tobacco Use/Smoking Question Answer Notes Tobacco use: current smoker Additional Findings: Tobacco User Moderate cigar ette smoker (10-19 cigs/day) Section Notes: Lives in [place] with part kaiden Roca. PROBLEMS Problem Type ICD Code Onset Dates Problem Status W/U Status Risk SNOMED Code Notes Problem Type 2 diabetes mellitus with hyperosmolarity without nonketotic hyperglycemic-hype rosmolar coma ([facility]) (E11.00) Active confirmed Hyperosmola rity due to secondary diabetes mellitus (814380446403474) VITAL SIGNS Blood pressure systolic 118 mm Hg 02/17/20 24 Blood pressure diastolic 62 mm Hg 024 Heart Rate 78 /min 02/17/2024 Height 67 in 02/17/2024 Weight 169 lbs 02/17/2024 BMI 26.47 kg/m2 02/17/2024 Oximetry 97 % 02/17/2024 Height-cm 170.18 cm 02/17/2024 Weight-kg 76.66 kg 02/17/2024 Encounters Encounter Location Date Provider Diagnosis [address] [id number] 02/17/2024 JAVIER ROBERTO Type 2 diabetes mellitus with hyperosmolarity without nonketotic hyperglycemic-hyperosmo lar coma ([facility]) E11.00 ; Diabetic nephropathy associated with type 2 diabetes mellitus E11.21 and Arteriosclerotic coronary artery disease I25.10 ASSESSMENTS Encounter Date Diagnosis Assessment Notes Treatment Notes Treatment Clinical Notes Section Notes 02/17/2024 Type 2 diabetes mellitus with hyperosmolarity without nonketotic hyperglycemic-hypero smolar coma ([facility]) (ICD-10 - E11.00) We made many changes today, he was recently seen by renal and cardiology and was told everything looks great 02/17/2024 Diabetic nephropathy associated with type 2 diabetes mellitus (ICD-10 - E11.21) 02/17/2024 Arteriosclerotic coronary artery disease (ICD-10 - I25.10) Samples of repatha given to patient today, RX sent 02/17/2024 Other Total time spen t with patient 32 minutes which includes face to face visit, education and coordination of care. PLAN OF TREATMENT Medication Medication Name Sig Start Date Stop Date Notes Repatha 140 MG/ML 1 mL Subcutaneous on ce every two weeks for 90 days 02/17/2024 05/17/2024 Jardiance 25 MG 1 tablet Orally Once a day for 30 days 02/17/2024 03/18/2024 Ozempic (0.25 or 0.5 MG/DOSE) 2 MG/3ML 0.05 mg Subcutaneous once per week for 30 days 02/17/2024 Treatment Notes Assessment Notes Type 2 diabetes mellitus wit h hyperosmolarity without nonketotic hyperglycemic-hyperosmolar coma ([facility]) We made many changes today, he was recently seen by renal and cardiology and was told everything looks great Arteriosclerotic coronary artery disease Samples of repatha given to patient today, RX sent Other Total time spent wit h patient 32 minutes which includes face to face visit, education and coordination of care. Next Appt Details Follow Up: 4 Weeks, Reason: f/u meds Progress Notes * ERIK KOLBDOB:[birth year] (68 yo M)Acc No.[id number]:02/17/2024 Progress Notes Patient:??ERIK KOLB Provider:??Javier Roberto DNP :1955?Age:68 Y?Sex:Ma le Date:02/17/2024 Phone: Address:[address] [place], [place] [phone] Subjective: * Chief Complaints: * ?F/U LABS * HPI: ?Patient Care Team:?Radio Division Lieutenant:??Dr. Crane.?Wood Calker:??Unsure of name - [facility].?Neurologist:??Dr. Altamirano.? Lip Reading Teacher: Dr. Almeida. ?Visit info:? Erik presents in the office today to go over his most recent lab results. * ROS:?all systems reviewed and are non-contributory unless specified in the HPI. * Medical History:?? * Surgical History:??Endoscopi c valve repair - [facility] 2011Rt. Inguinal hernia repair 2013 * Hospitalization/Major Diagno [...] Social History: Smoking Status:Current every day smoker, [SNOMED-CT:[id number]], 1.5 packs a day 50 years. ?Drugs/Alcohol:?Do you drink alcohol?: Yes - Occasional Bloody Marily. ?Lives in [place] with partner Abelino. * Medications:??TakingMetoprol ol Succinate ER 25 MG Tablet Extended Release 24 Hour 1 tablet Orally Once a day diphenhydrAMINE HCl 25 MG Capsule 1 capsule at bedtime as needed Orally Once a day Aspirin 81 MG Capsule 1 tab daily Oral , Notes to Pharmacist: aspirin 81 mg capsule *Pick strength-form from [employer] for eRX*NovoLIN 70/30 (70-30) 100 UNIT/ML Suspension Subcutaneous , Notes to Pharmacist: NovoLIN 70/30 U-100 Insulin 100 unit/mL subcutaneous suspensionProAir HFA 108 (90 Base) MCG/ACT Aerosol Solution take 2 puffs every 4-6 hrs as needed for cough Inhalation , Notes to Pharmacist: albuterol sulfate HFA 90 mcg/actuation aerosol inhaler *Reorder from [employer] for eRx and Interaction Alerts*Lisinopril 20 MG [...] NEEDED FOR ANXIETY Orally twice a day Full Kit Nebulizer Set - Miscellaneous for use with albuterol solution for COPD exacerbation every 4 hrs as needed As neededTaking Metoprolol Succinate ER 25 MG Tablet Extended Release 24 Hour 1 tablet Orally Once a day Taking diphenhydrAMINE HCl 25 MG Capsule 1 capsule at bedtime as needed Orally Once a day Taking Aspirin 81 MG Capsule 1 tab daily Oral , Notes to Pharmacist: aspirin 81 mg capsule *Pick strength-form from [employer] for eRX*Taking NovoLIN 70/30 (70-30) 100 UNIT/ML Suspension Subcutaneous , Notes to Pharmacist: NovoLIN 70/30 U-100 Insulin 100 unit/mL subcutaneous suspensionTaking ProAir HFA 108 (90 Base) MCG/ACT Aerosol Solution take 2 puffs every 4-6 hrs as needed for cough Inhalation , Notes to Pharmacist: albuterol sulfate HFA 90 mcg/actuation aerosol inhaler *Reorder from [employer] for eRx and Interaction Alerts*Taking Lisinopril 20 [...] FOR ANXIETY Orally twice a day Taking Full Kit Nebulizer Set - Miscellaneous for use with albuterol solution for COPD exacerbation every 4 hrs as needed As neededNot-TakingSenna S 8.6-50 MG Tablet 2 TABS Orally Twice a day X 1 MONTH, MAY CONTINUE WITH PLANE SENNA IF NORMAL bmSLevocetirizine Dihydrochloride 5 MG Tablet TAKE 1 TABLET BY MOUTH EVERY DAY IN THE EVENING Clopidogrel Bisulfate 75 MG Tablet 1 tablet Orally Once a day Gocyevfw-Dsgayiwty-PP 3.5-54924-7 Suspension 4 drops into affected ear Otic [...] to Pharmacist: fish oil *Pick strength-form from [employer] for eRX*Niacin 500 MG Tablet Oral , [...] tablet Orally Once a day Not- Taking Fdovknvz-Xemakbwut-CE 3.5-69869-9 Suspension 4 drops into affected ear Otic [...] to Pharmacist: fish oil *Pick strength-form from [employer] for eRX*Not- Taking Niacin 500 MG Tablet Oral , Notes to Pharmacist: niacin 500 mg tabletNot-Taking Ira Allergy 180 MG Tablet 1 tablet by mouth daily Oral , Notes to Pharmacist: Ira Allergy 180 mg tabletMedication List reviewed and reconciled with the patient * Allergies:??N.K.D.A.no[Aller gies Verified] Objective: * Vitals:??BP:118/62mm Hg, HR: 78/min, Oxygen sat %:97%, Wt:169lbs, Wt-k.66 kg, Ht: 67 in, Ht-cm: 170.18 cm, BMI:26.47Index, Body Surface Area: 1.9. * Physical Examination:?GEN: NAD ?NECK: supple, NT, FROM ?RESP: unlabored breathing, no use of accessory of muscles of respiration ?DERM: skin warm and dry ?EXT: no cyanosis/clubbing/edema ?NEURO: AO x 3 ?PSYCH: judgment/insight intact, NL mood/affect. Assessment: * Assessment: 1.??Type 2 diabetes mellitus with hyperosmolarity without nonketotic hyperglycemic-hyperosmolar coma ([facility]) - E11.00 (Primary)??2.??Diabetic nephropathy associated with type 2 diabetes mellitus - E11.21??3.??Arteriosclerotic coronary artery disease - I25.10?? Plan: * Treatment: 2.??Arteriosclerotic coronar y artery disease?? Start Repatha Solution Prefilled Syringe, 140 MG/ML, 1 mL, Subcutaneous, once every two weeks, 90 days, 6, Refills 3.? Notes: Samples of repatha given to patient today, RX sent? 3.??Others?? Notes: Total time spent with patient 32 minutes which includes face to face visit, education and coordination of care.? * Procedure Codes:?? * Preventive Medicine:?Last CPE- 2021 Sept ?Colonoscopy: 2021 neg per pt in [place] ?Endoscopy: 2021 neg per pt in [place] ?Covid Vax- Yes & 4 boosters ?Flu shot- 06/2023 ?Shingles Vax: Yes, 2022 - Shingrix ?PV: Yes, 05/2023 ?RSV: Yes, 2022. * Follow Up:??4 Weeks (Reason: f/u meds) * Billing Information: * Visit Code:?? 44146 Office Visit, Est Pt., Level 4. * Procedure Codes:?? * Sign off status: Completed true * Provider:??Javier Roberto DNP Date:??0 02/17/2024 History and Physical Notes * HPI (History of Present Illness) Category Sub-Category Detail Notes Category Not es Patient Care Team Radio Division Lieutenant: Dr. Royce Trejo gist: Dr. Almeida Wood Calker: Unsure of name - [facility] Neurologist: Dr. Altamirano Visit info Erik present s in the office today to go over his most recent lab results. Physical Examination Category Sub-Category Detail Notes Section Note s GEN: NAD NECK: supple, NT, FROM RESP: unlabored breathing, no use of accessory of muscles of respiration DERM: skin warm and dry EXT: no cyanosis/clubbing/edema NEURO: AO x 3 PSYCH: judgment/insight intact, NL mood/affect
--- OUTSIDE RECORDS SUMMARY | 2024-12-26 13:39 | XMS_ITS | Clinical Summary ---
Author Organization [facility], Address [address] [place] [phone] Phone Care Team Providers Care Bi Tester Name Role Phone Arcadio Jorgensen MD Primary Care Provider [phone] Allergies No known active allergies Medications fexofenadine (Ira Allergy) 180 MG tablet Take 180 mg by mouth 1 (one) time each day Active docusate sodium (COLACE) 100 MG capsule Take 100 mg by mouth in the morning and 100 mg in the evening. Active aspirin (ST ERNST) 81 MG EC tablet Take 81 mg by mouth 1 (one) time each day Active niacin 500 MG tablet Take 500 mg by mouth 1 (one) time each day with breakfast Active [place]-3 Fatty Acids (FISH OIL PO) Take by mouth Active insulin NPH-insulin regular (NovoLIN) (70-30) 100 UNIT/ML injection Inject under the skin 2 (two) times a day Active pantoprazole (PROTONIX) 40 MG EC tablet Take 40 mg by mouth 1 (one) time each day before breakfast Do not crush, chew, or split. Active hydrOXYzine (ATARAX) 25 MG tablet Take 25 mg by mouth 3 (three) times a day if needed for itching Active lisinopril 20 MG tablet Take 20 mg by mouth 1 (one) time each day Active cloNIDine (CATAPRES) 0.2 MG tablet Take 0.2 mg by mouth in the morning and 0.2 mg in the evening. Active clonazePAM (KlonoPIN) 1 MG tablet Take 1 mg by mouth in the morning and 1 mg in the evening. Active rosuvastatin (CRESTOR) 40 MG tablet Take 40 mg by mouth 1 (one) time each day Active clopidogrel (PLAVIX) 75 MG tablet Take 75 mg by mouth 1 (one) time each day Active ondansetron (ZOFRAN) 8 MG tablet Take 8 mg by mouth 1 (one) time each day if needed 3 Active metoprolol succinate XL (Toprol XL) 25 MG 24 hr tablet Take 1 tablet (25 mg total) by mouth 1 (one) time each day Do not crush or chew. 30 tablet 11 4 12/28/19 25 Active Active Problems Problem Noted Date Diagnosed Date Essential hypertension 11/18/2022 Diabetes mellitus 05/06/2022 Encounters Date Type Department Care Team Description 10/07/2024 Office Communication [facility] [address] [place] [address] Kenzie Gordon APRN from Last 3 Months Immunizations Name Administration Dates Next Due Influenza, Unspecified 08/30/2022 Family History Medical History Relation Comments Cancer Father Heart disease Mother Hypertension Mother Relation Status Comments Father Mother Social History Tobacco Use Types Packs/Day Years [...] Orientation Berg 06/02/2023 1: 15 PM EDT Plan of Treatment Upcoming Encounters Date Type Department Care Team (Late st Contact Info) Description 02/13/2025 2:30 PM EDT Office Visit [facility] [address] [place] [place] [address] Rogers Villarreal MD [address] [place] [address] [place] [phone] Health Maintenance Due Date Last Done Comments Pneumococcal Vaccine: 65+ Ye ars (1 of 2 - PCV) 1961 Colorectal Cancer Screening: Annual FOBT 2006 Colorectal Cancer Screening: Colonoscopy 2006 Colorectal Cancer Screening: Sigmoidoscopy 2006 Diabetes: Ophthalmology Exam 10/21/2022 Diabetes: Pedal Pulse Checked 10/21/2022 Diabetes: Sensory Foot Exam 10/21/2022 Diabetes: Visual Foot Exam 10/21/2022 Influenza Vaccine (#1) 2024 08/30/2022 Diabetes: Hemoglobin A1C 12/06/2024 09/07/2024 Hepatitis B Vaccine Aged Out No longe r eligible based on patient's age to complete this topic Insurance [facility] MEDICARE Care Teams Bi Tester Relationship Specialty Start Date End Date Arcadio Jorgensen MD [address] [address] PCP - General Internal Medicine 03/10/24
--- OUTSIDE RECORDS SUMMARY | 2024-12-26 13:39 | XMS_ITS | Continuity of Care Document ---
Author Organization [facility] Address [address] [address] Phone [phone] Care Team Providers Care General Manager In Training Name Role Phone Arcadio Jorgensen M.D. Care Team Information Receive r [phone] Social History Type Date Description Comments Sex Unknown Medical Devices Description No Information Available Encounters Description No Information Available Assessments Description No Information Available Plan of Treatment No Information Available Functional Status Description No Information Available Mental Status Description No Information Available Referrals Description No Information Available
== END 2024-12-26 11:51 | disposition home or self-care (01) ==
LOC: HO.LNP 11:50
PROVIDERS: Visit Provider Otolaryngology
DX: H60.90 Unspecified otitis externa, unspecified ear (principal)
CPT/HCPCS: 87070; 87077; 87102; 87186; 87205